=== PATIENT | male | born 1985 | race Caucasian/White ===

== ENCOUNTER 2022-08-16 23:15 | Emergency (ER) | payer SELFPAY ==
--- OUTSIDE RECORDS SUMMARY | 2022-08-16 23:21 | XMS REPORT | Continuity of Care Document ---
:1985 Author Organization [facility] t Address [address] [place] [address] Care Team Providers Name Role Phone PCP, PATIENT DOES NOT HAVE A Primary Care Physician Unavaila THAIS Perdomo Attending Clinician Unavailable Thais Perrin MD Attending Clinician [phone] Ana Luisa Lenz DO Attending Clinician ANA LUISA LENZ Attending Clinician Unavailable Carlos Lawson MA Attending Clinician Unavailable Zainab MCCRAY, Ck Dick Attending Clinician Unavailable Brittany Contreras MA Attending Clinician Unavailable Matias Tay RN, Jessica Montelongo Attending Clinician Unavailable Alli Davenport MD Attending Clinician Kylie Kolb Attending Clinician KYLIE BURR Attending Clinician Unavailable THAIS PERRIN Admitting Clinician Unavailable Alli Davenport MD Admitting Clinician ORTHOPEDIC SURGERY, ORTHOPEDIC Admitting Clinician Unavailab le Payers Payer Name Policy Type Policy Number Effective Date Expiration Date S ource Problems Condition Condition Condition Status Onset Resolution Last Treating Co mments Source Name Details Category Date Date Treatment Clinician Date 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 8-04 it y of 00:00: [place] 00 Medical Branch Acute Acute Disease Active Univers embolism embolism 8-04 ity of and and 00:00: [place] thrombosis thrombosis 00 Me dical of left of left Branch axillary axillary vein vein Symptomati Symptomati Disease Active U nivers c HIV c HIV 804 [place] of [place] 00:[place] [facility] Thrombophl Thrombophl Disease Active U nivers ebitis arm ebitis arm 804 it y of 00:00: [address] Cutaneous Cutaneous Disease Active Uni vers abscess of abscess of 05-12 it y of left upper left upper 00:[place] limb limb [facility] [place] Obesity Obesity Disease Active Univers (BMI (BMI 8 ity of 30-39.9) 30-39.9) 00:00: [place] [facility] Branch Cutaneous Cutaneous Disease Active Uni vers abscess of abscess of 05-12 it y of left upper left upper 00:[place] [facility] Allergies, Adverse Reactions, Alerts Allergy Allergy Status Severity Reaction(s) Onset Inactive Treating Comm ents Source Name Type Date Date Clinician METRONID DRUG Active SOB Univers AZOLE INGREDI 5-02 ity of HCL 00:00: [address] Metronid Propensi Active Shortness of Univers azole ty to Breath 5-02 ity of Hcl adverse 00:00: [place] reaction 00 [facility] [place] Social History Social Habit Start Date Stop Date Quantity Comments Source History of Current smoker [facility] tobacco use [facility] Exposure to 2022-07-14 2022-07-24 Not sure [facility] SARS-CoV-2 00:00:00 05:30:00 [facility] (event) [place] Alcohol intake 2021-05-08 2021-05-08 Ex-drinker [facility] 00:00:00 00:00:00 (finding) [facility] Tobacco use and 2020-05-12 2020-05-12 Smokeless tobacco Un iversity of exposure 00:00:00 00:00:00 non-user [facility] Sex Ass[birth year] At [birth year] Universit y of 00:00:00 00:00:[address] [facility] Smoking Status Start Date Stop Date Source Ex-smoker 2020-05-12 00:00:00 2020-05-12 00:00:[address] [facility] Medications Ordered Filled Start Stop Current Ordering Indication Dosage Frequency Signature Comments Components Source Medication Medication Date Date Medication? Clinician (SIG) Name Name acyclovir 2021-10 Yes [id number] 400mg Take 2 U nivers 200 mg 0-13 capsules ity of capsule 00:00: by mouth [place] 00 every 8 Medical (eight) Branch hours. cephALEXin 2021-10 Yes [id number] 500mg Take 1 Univers (KEFLEX) 0-13 9108 capsule by ity o f 500 mg 00:00: mouth in [place] capsule 00 the Medical morning Branch and 1 capsule at noon and 1 capsule in the evening. cephALEXin 2021-10- No [id number] 500mg Take 1 Univers (KEFLEX) 0-13 - 9108 capsule by ity of 500 mg 00:00: 00:00 mouth in [place] capsule 00 :00 the Medical morning Branch and 1 capsule at noon and 1 capsule in the evening. Do all this for 10 days. acyclovir 2021-10- No [id number] 400mg Take 2 Univers 200 mg 0-13 - capsules ity of capsule 00:00: 00:00 by mouth [place] 00 :00 every 8 Medical (eight) Branch hours for 10 days. ibuprofen 2020- No 600mg 600 mg, Uni vers (IBU) 05-08 Oral, ity of tablet 600 14:45: 13:56 ONCE, 1 [place] mg 00 :00 dose, Wed Medical 05/08/21 at Branch 0945, SAIGE amoxicillin 2020- No [id number] 1{tbl} Take 1 Univers -clavulanat 05-08 0808 tablet by it y of e 875-125 00:00: 04:59 mouth [place] mg per 00 :00 every 12 Medical tablet (twelve) Branch hours for 10 days. HYDROcodone Yes 1{tbl} 1 tablet, Univers -acetaminop 05-15 Oral, ity of hen (NORCO 20:00: Q6HPRN, [place] 5) 5-325 mg 00 Starting Medi jasmin tablet 1 Thu05/15/20 Bran h tablet at 1500, Until Discontinu ed, Routine, Pain (scale 7-10) LORazepam 2019- Yes .5mg 0.5 mg, Unive rs (ATIVAN) 8- Oral, ity of tablet 0.5 17:45: Q6HPRN, [place] mg 00 Starting Medical Thu05/15/20 Branch at 1245, Until Discontinu ed, Routine, Agitation apixaban 2019- No 10mg 10 mg, Univer s (ELIQUIS) 05-15-11 Oral, BID, ity of tablet 10 16:00: 12:59 14 doses, [place] mg 00 :00 First dose Medical on Thu [place] 05/15/20 at 1100, Last dose on Thu05/21/20 at 2000, Routine KCL 2019- No 40meq 40 mEq, Univers (KLOR-CON 05-15 Oral, ONCE ity of M20) tablet 10:15: 11:37 NOW, 1 [place] 40 mEq 00 :00 dose, [facility] Medical 05/15/20 at Branch 0515, Routine sennosides- Yes 1{tbl} 1 tablet, Univers docusate 05-15 Oral, BID, ity o f sodium 01:00: First dose [place] (SENOKOT S) 00 on Thu Medica l 8.6-50 mg 05/14/20 at Branc h per tablet 1999, 1 tablet Until Discontinu ed, Routine HYDROcodone 2019- No 1{tbl} 1 tablet, Univers -acetaminop 05-15 Oral, ity of hen (NORCO) 00:51: 17:32 Q6HPRN, [place] 10-325 mg 21 :43 Starting Medica l tablet 1 Thu05/14/20 Branc h tablet at 1951, Until Thu05/15/20 at 1232, Routine, Pain (scale 7-10) apixaban 5 2019- No Take 2 Univ ers mg tablet 05-15 11-10 tablets by ity of 00:00: 05:59 mouth 2 [place] 00 :00 (two) Medical times Branch daily for 7 days, THEN 1 tablet 2 (two) times daily for 90 days. Indication s: DVT apixaban 5 2019-2019- No Take 2 Univ ers mg tablet - 11-10 tablets by ity of 00:00: 05:59 mouth 2 [place] 00 :00 (two) Medical times Branch daily for 7 days, THEN 1 tablet 2 (two) times daily for 90 days. Indication s: DVT apixaban 5 2019-2019- No Take 2 Univ ers mg tablet 05-15 11-10 tablets by ity of 00:00: 05:59 mouth 2 [place] 00 :00 (two) Medical times Branch daily for 7 days, THEN 1 tablet 2 (two) times daily for 90 days. Indication s: DVT apixaban 5 2019-0 2019- No Take 2 Univ ers mg tablet 8-04 11-10 tablets by ity of 00:00: 05:59 mouth 2 [place] 00 :00 (two) Medical times Branch daily for 7 days, THEN 1 tablet 2 (two) times daily for 90 days. Indication s: DVT apixaban 5 2019-2019- No Take 2 Univ ers mg tablet 8-04 11-10 tablets by ity of 00:00: 05:59 mouth 2 [place] 00 :00 (two) Medical times Branch daily for 7 days, THEN 1 tablet 2 (two) times daily for 90 days. Indication s: DVT apixaban 5 2019-2019- No Take 2 Univ ers mg tablet 8-04 11-10 tablets by ity of 00:00: 05:59 mouth 2 [place] 00 :00 (two) Medical times Branch daily for 7 days, THEN 1 tablet 2 (two) times daily for 90 days. Indication s: DVT apixaban 5 2019-2019- No Take 2 Univ ers mg tablet 8-04 11-10 tablets by ity of 00:00: 05:59 mouth 2 [place] 00 :00 (two) Medical times Branch daily for 7 days, THEN 1 tablet 2 (two) times daily for 90 days. Indication s: DVT apixaban 5 2019-2019- No Take 2 Univ ers mg tablet 8-04 11-10 tablets by ity of 00:00: 05:59 mouth 2 [place] 00 :00 (two) Medical times Branch daily for 7 days, THEN 1 tablet 2 (two) times daily for 90 days. Indication s: DVT apixaban 5 2019-2019- No Take 2 Univ ers mg tablet 8-04 11-10 tablets by ity of 00:00: 05:59 mouth 2 [place] 00 :00 (two) Medical times Branch daily for 7 days, THEN 1 tablet 2 (two) times daily for 90 days. Indication s: DVT apixaban 5 2019-2019- No Take 2 Univ ers mg tablet 8-04 11-10 tablets by ity of 00:00: 05:59 mouth 2 [place] 00 :00 (two) Medical times Branch daily for 7 days, THEN 1 tablet 2 (two) times daily for 90 days. Indication s: DVT apixaban 5 2019- 2020- No Take 2 Univ ers mg tablet 05-15-10 tablets by ity of 00:00: 05:59 mouth 2 [place] 00 :00 (two) Medical times Branch daily for 7 days, THEN 1 tablet 2 (two) times daily for 90 days. Indication s: DVT sulfamethox 2019-0 2019- No [id number] 1{tbl} Take 1 Univers azole-trime 05-15 [id number] tablet by ity of thoprim 00:00: 04:59 mouth 2 [place] (BACTRIM 00 :00 (two) Medical DS) 800-160 times Branch mg per daily for tablet 14 days. sulfamethox 2020-0 2019- No [id number] 1{tbl} Take 1 Univers azole-trime 05-15 [id number] tablet by ity of thoprim 00:00: 04:59 mouth 2 [place] (BACTRIM 00 :00 (two) Medical DS) 800-160 times Branch mg per daily for tablet 14 days. sulfamethox 2019-0 2019- No [id number] 1{tbl} Take 1 Univers azole-trime 05-15 [id number] tablet by ity of thoprim 00:00: 04:59 mouth 2 [place] (BACTRIM 00 :00 (two) Medical DS) 800-160 times Branch mg per daily for tablet 14 days. sulfamethox 2019-0 2019- No [id number] 1{tbl} Take 1 Univers azole-trime 05-15 [id number] tablet by ity of thoprim 00:00: 04:59 mouth 2 [place] (BACTRIM 00 :00 (two) Medical DS) 800-160 times Branch mg per daily for tablet 14 days. sulfamethox 2020-0 2019- No [id number] 1{tbl} Take 1 Univers azole-trime 05-15 [id number] tablet by ity of thoprim 00:00: 04:59 mouth 2 [place] (BACTRIM 00 :00 (two) Medical DS) 800-160 times Branch mg per daily for tablet 14 days. sulfamethox 2020-0 2019- No [id number] 1{tbl} Take 1 Univers azole-trime 05-15 [id number] tablet by ity of thoprim 00:00: 04:59 mouth 2 [place] (BACTRIM 00 :00 (two) Medical DS) 800-160 times Branch mg per daily for tablet 14 days. sulfamethox 2020- No [id number] 1{tbl} Take 1 Univers azole-trime 05-15 [id number] tablet by ity of thoprim 00:00: 04:59 mouth 2 [place] (BACTRIM 00 :00 (two) Medical DS) 800-160 times Branch mg per daily for tablet 14 days. morpHINE 2019- No 2mg 2 mg, Univers injection 2 05-14 Intravenou i ty of mg 18:45: 18:55 s, ONCE, 1 [place] 00 :00 dose, [facility] Medical 05/14/20 at Branch 1345, Routine Polyethylen 2019- Yes 17g 17 g, Unive rs e Glycol 05-14 Oral, ity of 3350 14:00: DAILY, [place] (MIRALAX) 00 First dose Medi jasmin powder 17 g on [facility] 05/14/20 at 0900, Until Discontinu ed, Routine vancomycin Yes 1500mg 1,500 mg, Univers 1500 mg in 05-14 IV ity of NS 500 mL 04:30: [place] 00 Q8H ABX, Medical Piggyback First dose Bran ch RTU 1,500 (after mg last modificati on) on [place] 05/13/20 at 2330, Until Discontinu ed
Reas on for Anti-Infec tive: Empiric Therapy for Suspected Infection< br>Empiric Therapy Site: Blood
D uration of therapy: 72 hours HYDROcodone 2020- No 1{tbl} 1 tablet, Univers -acetaminop 05-12 Oral, ity of hen (NORCO 19:25: 00:51 Q6HPRN, [place] 5) 5-325 mg 03 :39 Starting Medi jasmin tablet 1 05/12/20 Branc h tablet at 1425, Until 05/14/20 at 1951, SAIGE, Pain (scale 7-10) heparin 2019- 2020- No 3000U 3,000 Univers 1,000 05-12 Units, ity of unit/mL 18:00: 15:58 Slow IV [place] injection 00 :39 Push, FOR Medic al 3,000 Units REBOLUSING Br anch , Starting 05/12/20 at 1300, Until Thu05/15/20 at 1058, Routine, for rebolusing heparin STD 2019-2019- No 1300U/h 1,300 U nivers 25,000 05-12 08-04 Units/hr ity of units/250ml 18:00: 15:58 ( [place] in NS 00 :39 mL/hr), IV Medical Infusion, Branch TITRATE, Parameters in Admin. Instr., Starting 05/12/20 at 1300
CA UTION - If LMWH given in ER, AVOID bolus and start dose/drip 12 hours after ER dosage.&nb sp; M ust program rate using programmab le infusion pump.&nbsp ; Amie ck with the ordering provider first prior to any administra tion should the patient be on existing/a dditional anticoagul ant therapy.&n bsp; DO NOT ADJUST INITIAL BOLUS OR INITIAL INFUSION RATE Rang e, Dosing and Testing: ____ &nbs p; FO [facility] - aPTT < 35: & nbsp;Bolus 5000 units, increase rate 300 units/hr&n bsp; - aPTT 35-44:&nbs p; Regulo mohan 3000 units, increase rate 200 units/hr&n bsp; - aPTT 45-54:&nbs p;&nbs p;Increase rate 100 units/hr&n bsp; - aPTT 55-85:&nbs p; NO CHANGE&nbs p; - aPTT 86-95:&nbs p; De crease rate 100 units/hr&n bsp; - aPTT 96-120:&nb sp; H old 30 minutes, decrease rate 150 units/hr&n bsp; - aPTT > 120: Hold 60 minutes, decrease rate 200 units/hr&n bsp; Check aPTT 6 hours after initiation , then Q6H after every change, aPTT Q12H once therapeuti c levels are reached.&n bsp; &amp ;nbsp;____ &nbs p; FO R [facility] ONLY - aPTT < 40: & nbsp;Bolus 5000 units, increase rate 300 units/hr&n bsp; - aPTT 40-49:&nbs p; Regulo mohan 3000 units, increase rate 200 units/hr&n bsp; - aPTT 50-59:&nbs p; In crease rate 100 units/hr&n bsp; - aPTT 60-85:&nbs p; NO CHANGE&nbs p; - aPTT 86-95:&nbs p; De crease rate 100 units/hr&n bsp; - aPTT 96-120:&nb sp; H old 30 minutes, decrease rate 150 units/hr&n bsp; - aPTT > 120: Hold 60 minutes, decrease rate 200 units/hr&n bsp;&n bsp;Check aPTT 6 hours after initiation , then Q6H after every change, aPTT Q12H once therapeuti c levels are reached.<b r> heparin 2019-0 2020- No 5000U 5,000 Univers 1000 05-12 Units, IV ity of unit/mL 18:00: 16:40 Push, [place] injection 00 :00 ONCE, 1 Medical Soln 5,000 dose, Sat Bran ch Units 05/12/20 at 1300, Routine thiamine 2020-0 Yes 100mg 100 mg, Unive rs (VITAMIN 05-12 Oral, ity of B1) tablet 14:00: DAILY, [place] 100 mg 00 First dose Medical on Sat Branch 05/12/20 at 0900, Until Discontinu ed, Routine foLIC acid Yes 1mg 1 mg, Univer s (FOLATE) 05-12 Oral, ity of tablet 1 mg 14:00: DAILY, [place] 00 First dose Medical on [facility] Branch 05/12/20 at 0900, Until Discontinu ed, Routine cefTRIAXone Yes 2000mg 2,000 mg, Univers (ROCEPHIN) 05-12 IV ity of 2,000 mg in 11:45: Piggyback, [place] NaCl 0.9% 00 Q24H ABX, Medic al (NS) 100 mL First dose Br anch MINI-BAG on 05/12/20 at 0645, Until Discontinu ed, 100 mL
R gloria for Anti-Infec tive: Documented Infection< br>Documen [place] Infection Site: Blood<br&g t;Duration of Therapy: 7 days vancomycin 2019- No 15mg/kg 1,250 mg Univers 1250 mg in 05-12 (rounded ity of NS 250 mL 10:45: 03:16 from [place] RTU IV 00 :32 1,327.5 mg Medical Piggyback = 15 mg/kg Bran ch 1,250 mg ?88.5 kg), IV Piggyback, Q12H ABX, First dose on 05/12/20 at 0545, Until Discontinu ed
Reas on for Anti-Infec tive: Empiric Therapy for Suspected Infection< br>Empiric Therapy Site: Blood
D uration of therapy: 72 hours ibuprofen Yes 400mg 400 mg, Univ ers (IBU) 05-12 Oral, ity of tablet 400 10:34: Q6HPRN, [place] mg 20 Starting Medical [facility] 05/12/20 Branch at 0534, Until Discontinu ed, Routine, Pain (scale 1-3) pantoprazol 2020- No 40mg Take 40 mg Univers e 05-12 by mouth ity of (PROTONIX) 08:37: 00:00 daily. [place] 40 mg EC 36 :00 Medical tablet Branch LORazepam No 1mg 1 mg, Univer s (ATIVAN) 05-12 Oral, ity of tablet 1 mg 08:25: 17:32 Q4HPRN, [place] 30 :43 Starting Medical 05/12/20 Branch at 0325, Until Thu05/15/20 at 1232, Routine, Agitation iohexol 2019- No 100mL 100 mL, Unive rs (OMNIPAQUE 05-12 Intravenou it y of 350 08:23: 08:23 s, ONCE, 1 [place] 00 :00 dose, Sat Medica l mL) 05/12/20 at [place] injection 0345, 100 mL Routine morpHINE 2019- No 4mg 4 mg, Slow Un sharron injection 4 05-12 IV Push, ity of mg 07:00: 06:32 ONCE, 1 [place] 00 :00 dose, Sat Medical 05/12/20 at Branch 0200, STAT enoxaparin 2019- No 100mg 100 mg, Un sharron (LOVENOX) 05-12 Subcutaneo ity of injection 07:00: 06:30 , ONCE, [place] 100 mg 00 :00 1 dose, Medical 05/12/20 Branch at 0200, SAIGE HYDROcodone 2019- No 1{tbl} 1 tablet, Univers -acetaminop 05-12 Oral, ity of hen (NORCO 03:30: 04:01 ONCE, 1 [place] 5) 5-325 mg 00 :00 dose, Fri Med ical tablet 1 05/11/20 at [facility] h tablet 2230, SAIGE No known No Univers medications ity [facility] No known No [facility] Ordered Filled Immunization Date Status Comments [facility] Immunization Name Name Td 2021-05-08 Completed University 00:00:[address] [facility] Td 2021-05-08 Completed [facility] :00:[address] [facility] Vital Signs Vital Name Observation Time Observation Value Comments Source Systolic blood 2022-07-24 10:31:00 121 mm[Hg] Univer sity of pressure [facility] Diastolic blood 2022-07-24 10:31:00 74 mm[Hg] Unive rsity of pressure [place] [facility] Heart rate 2022-07-24 10:31:00 97 /min [facility] [place] [facility] Body temperature 2022-07-24 10:31:00 36.83 Devika Univ ersity of [place] [facility] Respiratory rate 2022-07-24 10:31:00 17 /min Univ ersity of [place] [facility] Body height 2022-07-24 10:31:00 170.2 cm [facility]i ty [facility] [place] [facility] Body weight 2022-07-24 10:31:00 72.576 kg [facility] [place] [facility] BMI 2022-07-24 10:31:00 25.06 kg/m2 Universi ty of [place] [facility] Oxygen saturation in 2022-07-24 10:31:00 97 /min University of Arterial blood by [facility] Pulse oximetry Branch Systolic blood 2021-05-08 13:37:00 133 mm[Hg] Univer sity of pressure [place] [facility] Diastolic blood 2021-05-08 13:37:00 87 mm[Hg] Unive rsity of pressure [place] [facility] Heart rate 2021-05-08 13:37:00 105 /min [facility]i ty [facility] [place] [facility] Body temperature 2021-05-08 13:37:00 36.5 Devika Univ ersity of [place] [facility] Respiratory rate 2021-05-08 13:37:00 18 /min Univ ersity of [place] [facility] Body weight 2021-05-08 13:37:00 88.451 kg [facility] [place] [facility] BMI 2021-05-08 13:37:00 30.54 kg/m2 Universi ty of [place] [facility] Oxygen saturation in 2021-05-08 13:37:00 97 /min University of Arterial blood by [facility] Pulse oximetry Branch Systolic blood 2020-05-15 16:43:00 95 mm[Hg] Univer sity of pressure [place] [facility] Diastolic blood 2020-05-15 16:43:00 47 mm[Hg] Unive rsity of pressure [place] [facility] Heart rate 2020-05-15 16:43:00 45 /min [facility] [place] [facility] Body temperature 2020-05-15 16:43:00 35.61 Devika Univ ers[facility] [place] [facility] Respiratory rate 2020-05-15 16:43:00 18 /min Univ ersity of [place] [facility] Oxygen saturation in 2020-05-15 16:43:00 95 /min [facility] Arterial blood by [facility] Pulse oximetry Branch BMI 2020-05-12 10:00:00 30.54 kg/m2 [facility] Body height 2020-05-12 10:00:[address] [facility] Body weight 2020-05-12 10:00:[address] [facility] Procedures Procedure Date / Time Performing Clinician Source Performed XR FOOT 3+ VW LEFT 2022-07-24 11:38:25 Thais Perrin [facility] NOTICE OF PRIVACY 2022-07-24 10:19:43 Doctor Unassigned, No [facility] PRACTICES Name [facility] CONSENT/REFUSAL FOR 2022-07-24 10:18:54 Doctor Unassigned, No [facility] DIAGNOSIS AND TREATMENT Name Medical Branch ACTIVATED PARTIAL 2020-05-15 06:40:00 Holden Castlilo [facility] COMP. METABOLIC PANEL 2020-05-15 05:29:00 Radha [facility] ([id number]) Medical Branch VANCOMYCIN TROUGH 2020-05-15 05:29:00 Radha [facility] CBC WITH DIFF 2020-05-15 05:29:00 Diaz [facility] TOXOPLASMA IGG ANTIBODY 2020-05-15 05:29:00 Radha [facility] HBC ANTIBODY (IGM & IGG) 2020-05-15 05:29:00 Zoey Garcia [facility] HAV ANTIBODY (IGG AND 2020-05-15 05:29:00 Radha [facility] IGM) [facility] GALV ONLY - SYPHILIS 2020-05-15 05:29:00 Radha [facility] IGG/IGM [facility] URINALYSIS 2020-05-15 01:34:00 Radha [facility] GC & CHLAMYDIA AMPLIFIED 2020-05-15 01:34:00 Zoey Garcia [facility] ASSAY [facility] ACTIVATED PARTIAL 2020-05-14 21:55:00 Holden Castillo [facility] CD4 SUBSET ASSAY 2020-05-14 15:15:[address] [facility] ACTIVATED PARTIAL 2020-05-14 15:15:00 Jonathan [facility] BASIC METABOLIC PANEL 2020-05-14 09:56:00 Diaz, [facility] (NA, K, CL, CO2, Medical Branch GLUCOSE, BUN, CREATININE, CA) LIPID PANEL 2020-05-14 09:56:[address] [facility] ([id number])(TOTAL Medical Branch CHOLESTEROL, TRIGLYCERIDES, HDL) CBC WITH DIFF 2020-05-14 09:56[facility] 2020-05-14 09:56:00 Radha [facility] (A1C) [facility] HEPATITIS B SURFACE 2020-05-14 09:56:00 Radha [facility] ANTIGEN [facility] HCV ANTIBODY 2020-05-14 09:56:00 Radha [facility] HEPATITIS B CORE 2020-05-14 09:56[facility] VANCOMYCIN TROUGH 2020-05-14 01:18:[address] [facility] ACTIVATED PARTIAL 2020-05-14 01:18:00 Jonathan [facility] ASPIRATE OR ABSCESS 2020-05-13 21:33:00 Lisa Mckeon [facility] CULTURE(AEROBIC/ANAEROBI [facility] C) AFB CULTURE 2020-05-13 21:33:[address] [facility] FUNGUS (ROUTINE) CULTURE 2020-05-13 21:33:[address] [facility] INCISION AND DRAINAGE 2020-05-13 20:47:00 Lisa Mckeon [facility] UPPER EXTREMITY [facility] ACTIVATED PARTIAL 2020-05-13 14:08:00 Jonathan [facility] BASIC METABOLIC PANEL 2020-05-13 06:38:00 Diaz, [facility] (NA, K, CL, CO2, Medical Branch GLUCOSE, BUN, CREATININE, CA) CBC WITH DIFF 2020-05-13 06:38:00 Diaz, [facility] o f [facility] ACTIVATED PARTIAL 2020-05-13 06:38:00 Holden Castillo [facility] ACTIVATED PARTIAL 2020-05-12 23:21:00 Holden Castillo [facility] ACTIVATED PARTIAL 2020-05-12 11:35:00 [facility] - [facility]INE 2020-05-12 11:05:00 Holden Castillo [facility] DRUG (IMMUNOASSAY) - Medical [facility] COMPREHENSIVE DRUG SCREEN BLOOD CULTURE SCREEN 2020-05-12 11:04:00 Holden Castillo [facility] HIV 1/2 AG-AB WITH 2020-05-12 11:03:00 Holden Castillo [facility] REFLEX [facility] HIV 1/2 AB SUPPLEMENTAL 2020-05-12 11:03:00 Holden Castillo [facility] BLOOD CULTURE SCREEN 2020-05-12 10:52:00 Holden Castillo [facility] EKG-12 LEAD 2020-05-12 10:33:31 Alli Davenport [facility] CT HUMERUS LEFT W 2020-05-12 08:37:26 Kylie Burr [facility] PROTHROMBIN TIME / INR 2020-05-12 06:44:00 Kylie Burr U [facility] ACTIVATED PARTIAL 2020-05-12 06:44:00 Kylie Burr [facility] C-REACTIVE PROTEIN 2020-05-12 04:03:00 [facility] COMP. METABOLIC PANEL 2020-05-12 04:03:00 Kylie Burr [facility] ([id number]) [facility] SEDIMENTATION RATE 2020-05-12 04:03:00 [facility] CBC WITH DIFF 2020-05-12 04:03:[address] [facility] HEPATITIS B SURFACE 2020-05-12 04:03:00 [facility] HCV ANTIBODY 2020-05-12 04:03:[address] [facility] HBC ANTIBODY (IGM & IGG) 2020-05-12 04:03:00 Holden Castillo Jennifer [facility] COVID-19 (ID NOW RAPID 2020-05-12 04:03:00 Kylie Burr [facility] TESTING) Medical Branch US UPPER EXTREMITY VEIN 2020-05-12 03:49:17 Kylie Burr [facility] WITH COMPRESSION LEFT Medical Br anch (ONLY FOR RULE OUT DVT) XR ELBOW <3 VW LEFT 2020-05-12 02:36:17 Kylie Burr [facility] Encounters Start End Encounter Admission Attending Care Care Encounter Source Date/Time Date/Time Type Type Clinicians Facility Department ID 2022-07-24 2022-07-24 [id number] Univers 05:35:00 07:00:00 , THAIS borja [facility] 2022-07-24 2022-07-24 [facility] [id number] Univers 05:35:00 07:00:00 , Thais LOPEZ 350.1.13.10 i ty of Ashley HENSLEY 4.2.7.2.686 [facility] [id number] [address] 2021-05-08 2021-05-08 Emergency [place], UTMARY GRACE 1.2.840.114 [id number] Univers 08:30:00 09:30:00 Ana Luisa Lopez 350.1.13.10 ity [place] 4.2.7.2.686 [facility] [id number] [address] 2021-05-08 2021-05-08 Emergency [facility] [id number] Univers 08:30:00 08:30:00 ANA LUISA jeremiah [facility] 2020-11-01 2020-11-01 Telephone ZHANG Lawson [id number] Univers 00:00:00 00:00:00 Nechelle Y HEALTH 350.1.13.10 [place] [id number] [address] 2020-10-31 2020-10-31 Case Zainab, [facility] [id number] Univers 00:00:00 00:00:00 Management Ck L Y HEALTH 350.1.13.10 [place] [id number] [address] 2020-07-31 2020-07-31 Jigar Contreras, [facility] [id number] Univers 00:00:00 00:00:00 Management Brittany L Y HEALTH 350.1.13.10 [place] [id number] [address] 2020-07-18 2020-07-18 Jigar Feliciano, [facility] 1.2.840.114 [id number] Univers 00:00:00 00:00:00 Management Jessica R Y HEALTH 350.1.13.10 [place] [id number] [address] 2020-07-10 2020-07-10 [facility] [id number] Univers 00:00:00 00:00:00 Management Brittany L Y HEALTH 350.1.13.10 [place] [id number] [address] 2020-07-09 2020-07-09 [facility] [id number] [id number] Univers 00:00:00 00:00:00 Management Brittany L Y HEALTH 350.1.13.10 [place] [id number] [address] 2020-05-18 2020-05-18 [facility] 1.2.300.855 [id number] Univers 00:00:00 00:00:00 Management Brittany L Y HEALTH 350.1.13.10 ity [place] [id number] [place] [address] Branch 2020-05-17 2020-05-17 Jigar Contreras, [facility]ERS[facility] [id number] Univers 00:00:00 00:00:00 Management Brittany L Y HEALTH 350.1.13.10 [place] [id number] [address] 2020-05-16 2020-05-16 Telephone Ethel [facility] 1.2.840.114 [id number] Univers 00:00:00 00:00:00 Alli Terrazas MULTISPEC 350.1.13.10 [facility] [place] [id number] [address] DIABETES CLINIC 2020-05-16 2020-05-16 Jigar Contreras, [facility]ERSIT [id number] Univers 00:00:00 00:00:00 Management Brittany L Y HEALTH 350.1.13.10 [place] [id number] [address] 2020-05-11 2020-05-15 Hospital Kylie Burr 1.2.8 40.114 [id number] Univers 20:02:30 16:26:00 Encounter Alli Davenport [place] 350.1.1 3.10 ity of Hospital 4.2.7.2.686 [place] [id number] [address] 2020-05-15 2020-05-15 Telephone Ashley [facility] 1.2.840.114 [id number] Univers 00:00:00 00:00:00 Ck L Y HEALTH 350.1.13.10 [place] [id number] [address] 2020-05-11 2020-05-11 Emergency X AMINAH [facility] ERT [id number] Univers 20:02:30 20:02:[address] [facility] Results Test Description Test Time Test Comments Results Result Comments Source GC & CHLAMYDIA AMPLIFIED ASSAY 2020-05-15 18:26:00 Test Item Value Reference Range Interpretation Comme nts C. trachomatis Nucleic Acid (test code = 33401-2) Negative Nega tive N. gonorrhoeae Nucleic Acid (test code = 11347-4) Negative Nega tive Lab Interpretation (test code = 12496-3) Normal [facility] SUBSET [id number] 17:05:00 Test Item Value Reference Range Interpretation Comments CD4 % (test code = 23 % 31-60 L 8123-2) CD4 Absolute (test code See_Comment L [Au tomated message] = 70538-2) The system Cabeo generated this result transmitted ref erence range: 410-1,59 0 Cells/?L. The reference range was not used to int erpret this result as normal/abnormal . Lab Interpretation (test Abnormal code = 27746-7) [facility] ONLY - SYPHILIS [id number] 14:50:00 Test Item Value Reference Range Interpretation Comments Syphilis IgG/IgM (test Non-reactive Non-reactive code = 14688-5) MORIS (test code = MORIS) Non-reactive - No serologic evidence of T. pallidum infection. Cannot exclude incubating or early syphilis. Submit a second specimen in 2-4 weeks if syphilis is clinically suspected. Equivocal - Further testing to follow. Reactive - Further testing to follow. Lab Interpretation (test Normal code = 95639-9) [facility] CenterTOXOPLASMA IGG [id number] 14:49:00 Test Item Value Reference Range Interpretation Comments TOXO IGG (test code Negative = 9537822169) MORIS (test code = Positive - Indicates MORIS) current or past T. gondii infection.Negative - No serologic evidence of T. gondii infection. Cannot exclude acute T. gondii infection. Equivocal - A second sample should be sent. [facility] ANTIBODY (IGG AND IGM)2020-05-15 10:04:00 Test Item Value Reference Range Interpretation Comments HAV Total (test code Negative = 1457224271) HAVT Semi-Quantitative (test code = 6298827368) MORIS (test code = It is recommended that a MORIS) new specimen be collected within 2-4 weeks and retested. ?If any questions, please contact the Clinical Chemistry Director director clinical applications at [phone]. ? [facility] WITH [id number] 08:37:00 Test Item Value Reference Range Interpretation Comments WBC (test code = See_Comment [Automated 6690-2) message] The sy stem which generated this result transmitted reference range : 4.20 - 10.70 10*3/?L. The reference range was not used to interpret this result as normal/abnormal . RBC (test code = See_Comment L [Automated 789-8) message] The sy stem which generated this result transmitted reference range : 4.26 - 5.52 10*6/?L. The reference range was not used to interpret this result as normal/abnormal . HGB (test code = 12.3 g/dL 12.2-16.4 718-7) HCT (test code = 36.9 % 38.4-49.3 L 4544-3) MCV (test code = 90.7 fL 81.7-95.6 787-2) MCH (test code = 30.2 pg 26.1-32.7 785-6) MCHC (test code = 33.3 g/dL 31.2-35 786-4) RDW-SD (test code = 42.5 fL 38.5-51.6 16240-9) RDW-CV (test code = 12.9 % 12.1-15.4 788-0) PLT (test code = See_Comment [Automated 777-3) message] The sy stem which generated this result transmitted reference range : 150 - 328 10*3/ ?L. The reference r kiran was not used to interpret this result as normal/abnormal . MPV (test code = 10.9 fL 9.8-13 98427-0) NRBC/100 WBC (test See_Comment [Automat ed code = 0075592767) message] The system which generated this result transmitted reference range : 0.0 - 10.0 /100 WBCs. The refer ence range was not u sed to interpret th is result as normal/abnormal . NRBC x10^3 (test code <0.01 See_Comment [Auto mated = 8045958107) message] The s ystem which generated this result transmitted reference range : 10*3/?L. The reference range was not used to interpret this result as normal/abnormal . GRAN MAT (NEUT) % 57.9 % (test code = 770-8) IMM GRAN % (test code 1.50 % = 7164191489) LYMPH % (test code = 33.1 % 736-9) MONO % (test code = 6.4 % 5905-5) EOS % (test code = 0.6 % 713-8) BASO % (test code = 0.5 % 706-2) GRAN MAT x10^3(ANC) 5.57 10*3/uL 1.99-6.95 (test code = 6249049596) IMM GRAN x10^3 (test 0.14 10*3/uL 0-0.06 H code = 4475726107) LYMPH x10^3 (test code 3.19 10*3/uL 1.09-3.23 = 731-0) MONO x10^3 (test code 0.62 10*3/uL 0.36-1.02 = 742-7) EOS x10^3 (test code = 0.06 10*3/uL 0.06-0.53 711-2) BASO x10^3 (test code 0.05 10*3/uL 0.01-0.09 = 704-7) Lab Interpretation Abnormal (test code = 40577-7) [facility] CenterVanblue mountain hospitalycin Trough Level - Draw immediately prior to the 4TH dose, but, no more than 60 minutes before the 4TH dose. 2020-05-15 07:21:00 Test Item Value Reference Range Interpretation Comments VANCO TROUGH (test code 13.7 ug/mL 10-20 = 8005965289) MORIS (test code = MORIS) Toxic Range: ?>20 ug/mL 15-20 ug/mL is recommended for severe infection or when Vancomycin MARIANN is greater than or equal to 2. Lab Interpretation (test Normal code = 05373-6) [facility] CenterHB ANTIBODY (IGM & IGG)2020-05-15 07:14:00 Test Item Value Reference Range Interpretation Comments HBC (test code = 3272493847) Negative HBC Semi-Quantitative (test code = 3839156353) [facility] (17009)2020-05-15 07:01:00 Test Item Value Reference Range Interpretation Comments NA (test code = 139 mmol/L 135-145 1256425592) K (test code = 3.3 mmol/L 3.5-5 L 4331659119) CL (test code = 105 mmol/L 98-108 6061417731) CO2 TOTAL (test code = 27 mmol/L 23-31 0456851025) AGAP (test code = 2-16 9535853862) BUN (test code = 10 mg/dL 7-23 6407950061) GLUCOSE (test code = 92 mg/dL 70-110 8429683344) CREATININE (test code = 0.83 mg/dL 0.6-1.25 9268882415) TOTAL BILI (test code = <0.1 0.1-1.1 L 8121521141) CALCIUM (test code = 9.2 mg/dL 8.6-10.6 4227562155) T PROTEIN (test code = 6.6 g/dL 6.3-8.2 7857157217) ALBUMIN (test code = 3.7 g/dL 3.5-5 4512210631) ALK PHOS (test code = 70 U/L 34-122 6169985417) ALTv (test code = 101 U/L 5-50 H 1742-6) AST(SGOT) (test code = 126 U/L 13-40 H 7067126590) eGFR Calculation mL/min/1.73m2 (Non-) (test code = 1699391464) eGFR Calculation mL/min/1.73m2 () (test code = 7892404193) MORIS (test code = MORIS) Association of Glomerular Filtration Rate (GFR) and Staging of Kidney Disease* + --+ --+ ------+| GFR (mL/min/1.73 m2) ?| With Kidney Damage ?| ?Without Kidney Damage+ --------+ --------+ +| ?>90 ?| ?Stage one ?| ? Normal ?+ ---+ ---+ -------+| ?60-89 ?| ?Stage two ?| ? Decreased GFR ? + --+ --+ ------+| ?30-59 ?| ?Stage three ?| ? Stage three ? + --+ --+ ------+| ?15-29 ?| ?Stage four ? | ? Stage four ?+ ---+ ---+ -------+| ?<15 (or dialysis) ? ?| ?Stage five ? | ? Stage five ?+ ---+ ---+ -------+ *Each stage assumes the associated GFR level has been in effect for at least three months. ?Stages 1 to 5, with or without kidney disease, indicate chronic kidney disease. Notes: Determination of stages one and two (with eGFR >59mL/min/1.73 m2) requires estimation of kidney damage for at least three months as defined by structural or functional abnormalities of the kidney, manifested by either:Pathological abnormalities or Markers of kidney damage (including abnormalities in the composition of the blood or urine or abnormalities in imaging tests). Lab Interpretation Abnormal (test code = 75454-1) [facility] (for use with Heparin Practice Guideline). Note: Draw and Send all Lab STAT.2020-05-15 06:58:00 Test Item Value Reference Range Interpretation Comments APTT Patient (test code See_Comment H [Au tomated message] = 3173-2) The system Cabeo generated this result transmitted ref erence range: 26 - 36 Seconds. The reference range was not used to int erpret this result as normal/abnormal . Lab Interpretation (test Abnormal code = 32288-0) [facility] CenterURINALYSIS2020-08-04 03:29:00 Test Item Value Reference Range Interpretation Comments APPEARANCE (test code = Clear Clear 2407901736) COLOR (test code = Straw Yellow A 0383761689) PH (test code = 4.8-8.0 6179009618) SP GRAVITY (test code = 1.003-1.030 2809247550) GLU U QUAL (test code = Normal Normal 2829306510) BLOOD (test code = Negative Negative 1640660820) KETONES (test code = Negative Negative 8378813153) PROTEIN (test code = Negative Negative 2887-8) UROBILIN (test code = Normal Normal 3944083079) BILIRUBIN (test code = Negative Negative 2083760527) NITRITE (test code = Negative Negative 6302719675) LEUK TREY (test code = Negative Negative 6505087240) RBC/HPF (test code = See_Comment [Autom ated message] 7745096577) The system Cabeo generated this result transmitted ref erence range: 0 - 3 HP F. The reference range was not used to int erpret this result as normal/abnormal . WBC/HPF (test code = <1 See_Comment [Autom ated message] 2368590121) The system Cabeo generated this result transmitted ref erence range: 0 - 5 HP F. The reference range was not used to int erpret this result as normal/abnormal . BACTERIA (test code = Negative Negative 7685456378) MUCOUS (test code = Slight Negative LPF A 7736750563) Lab Interpretation (test Abnormal code = 21664-7) [facility] CenterHCV [id number] 02:21:00 Test Item Value Reference Range Interpretation Comments HCV Ab (test code = 75741-3) Negative HCV Semi-Quantitative (test code = 01526-8) [facility] B CORE ANTIBODY [id number] 01:54:00 Test Item Value Reference Range Interpretation Comments HBCM Negative Semi-Quantitative (test code = 56174-5) MORIS (test code = Biotin has been reported MORIS) to cause a negative bias, interpret results relative to patient's use of biotin. [facility] SURFACE [id number] 01:46:00 Test Item Value Reference Range Interpretation Comments HBsAg Semi-Quantitative (test code = Negative Negative 5195-3) [facility] CenterGLYCOSYLATED HEMOGLOBIN (A1C)2020-05-15 01:41:00 Test Item Value Reference Range Interpretation Comments HGB A1C (test code = 4548-4) 5.5 % 4-6 Lab Interpretation (test code = Normal 41680-6) [facility] CenterLIPID PANEL (17256)(TOTAL CHOLESTEROL, TRIGLYCERIDES, HDL)2020-05-15 01:09:00 Test Item Value Reference Range Interpretation Comments CHOL (test code = 192 mg/dL 120-200 7419888065) HDL (test code = 44 mg/dL >40 7530604858) HDLC RATIO (test code = See_Comment [Au tomated message] 6265306189) The system Cabeo generated this result transmit [place] reference range : <=5.0. The refe rence range was not u sed to interpret th is result as normal/abnormal . TRIG (test code = 246 mg/dL 30-170 H 6322909403) LDL CHOL (test code = 99 mg/dL See_Comment [Auto mated message] 77843-5) The system Cabeo generated this result transmit [place] reference range : <=160. The refe rence range was not u sed to interpret th is result as normal/abnormal . VLDL (test code = 49 mg/dL 5-60 6485895308) Lab Interpretation (test Abnormal code = 24332-6) [facility] (for use with Heparin Practice Guideline). Note: Draw and Send all Lab STAT.2020-05-14 22:39:00 Test Item Value Reference Range Interpretation Comments APTT Patient (test code >150 See_Comment HH [Au tomated message] = 3173-2) The system Cabeo generated this result transmitted ref erence range: 26 - 36 Seconds. The reference range was not used to int erpret this result as normal/abnormal . Lab Interpretation (test Abnormal code = 31316-8) [facility] (for use with Heparin Practice Guideline). Note: Draw and Send all Lab STAT.2020-05-14 15:52:00 Test Item Value Reference Range Interpretation Comments APTT Patient (test code = See_Comment [ Automated message] 3173-2) The system Cabeo generated this result transmitted ref erence range: 26 - 36 Seconds. The re ference range was not u sed to interpret this result as normal/abnor mal. Lab Interpretation (test Normal code = 16599-7) [facility] METABOLIC PANEL (NA, K, CL, CO2, GLUCOSE, BUN, CREATININE, CA)2020-05-14 10:33:00 Test Item Value Reference Range Interpretation Comments NA (test code = 136 mmol/L 135-145 7922136767) K (test code = 4.1 mmol/L 3.5-5 4366571345) CL (test code = 106 mmol/L 98-108 6130850987) CO2 TOTAL (test code = 25 mmol/L 23-31 2924990220) AGAP (test code = 2-16 3354165016) BUN (test code = 13 mg/dL 7-23 2890160385) GLUCOSE (test code = 156 mg/dL 70-110 H 1383577074) CREATININE (test code = 0.67 mg/dL 0.6-1.25 2661807909) CALCIUM (test code = 9.4 mg/dL 8.6-10.6 1071483790) eGFR Calculation mL/min/1.73m2 (Non-) (test code = 7875815252) eGFR Calculation mL/min/1.73m2 () (test code = 6125390334) MORIS (test code = MORIS) Association of Glomerular Filtration Rate (GFR) and Staging of Kidney Disease* + --+ --+ ------+| GFR (mL/min/1.73 m2) ?| With Kidney Damage ?| ?Without Kidney Damage+ --------+ --------+ +| ?>90 ?| ?Stage one ?| ? Normal ?+ ---+ ---+ -------+| ?60-89 ?| ?Stage two ?| ? Decreased GFR ? + --+ --+ ------+| ?30-59 ?| ?Stage three ?| ? Stage three ? + --+ --+ ------+| ?15-29 ?| ?Stage four ? | ? Stage four ?+ ---+ ---+ -------+| ?<15 (or dialysis) ? ?| ?Stage five ? | ? Stage five ?+ ---+ ---+ -------+ *Each stage assumes the associated GFR level has been in effect for at least three months. ?Stages 1 to 5, with or without kidney disease, indicate chronic kidney disease. Notes: Determination of stages one and two (with eGFR >59mL/min/1.73 m2) requires estimation of kidney damage for at least three months as defined by structural or functional abnormalities of the kidney, manifested by either:Pathological abnormalities or Markers of kidney damage (including abnormalities in the composition of the blood or urine or abnormalities in imaging tests). Lab Interpretation Abnormal (test code = 52681-4) [facility] WITH [id number] 10:11:00 Test Item Value Reference Range Interpretation Comments WBC (test code = See_Comment [Automated 2490-2) message] The sy stem which generated this result transmitted reference range : 4.20 - 10.70 10*3/?L. The reference range was not used to interpret this result as normal/abnormal . RBC (test code = See_Comment L [Automated 359-8) message] The sy stem which generated this result transmitted reference range : 4.26 - 5.52 10*6/?L. The reference range was not used to interpret this result as normal/abnormal . HGB (test code = 12.2 g/dL 12.2-16.4 718-7) HCT (test code = 36.0 % 38.4-49.3 L 4544-3) MCV (test code = 90.0 fL 81.7-95.6 787-2) MCH (test code = 30.5 pg 26.1-32.7 785-6) MCHC (test code = 33.9 g/dL 31.2-35 786-4) RDW-SD (test code = 41.1 fL 38.5-51.6 63504-5) RDW-CV (test code = 12.5 % 12.1-15.4 788-0) PLT (test code = See_Comment [Automated 777-3) message] The sy stem which generated this result transmitted reference range : 150 - 328 10*3/ ?L. The reference r kiran was not used to interpret this result as normal/abnormal . MPV (test code = 11.4 fL 9.8-13 81422-6) NRBC/100 WBC (test See_Comment [Automat ed code = 6182069401) message] The system which generated this result transmitted reference range : 0.0 - 10.0 /100 WBCs. The refer ence range was not u sed to interpret th is result as normal/abnormal . NRBC x10^3 (test code <0.01 See_Comment [Auto mated = 3786291962) message] The s ystem which generated this result transmitted reference range : 10*3/?L. The reference range was not used to interpret this result as normal/abnormal . GRAN MAT (NEUT) % 79.9 % (test code = 770-8) IMM GRAN % (test code 1.00 % = 1789826760) LYMPH % (test code = 15.4 % 736-9) MONO % (test code = 3.6 % 5905-5) EOS % (test code = 0.0 % 713-8) BASO % (test code = 0.1 % 706-2) GRAN MAT x10^3(ANC) 7.40 10*3/uL 1.99-6.95 H (test code = 6398211913) IMM GRAN x10^3 (test 0.09 10*3/uL 0-0.06 H code = 5795117510) LYMPH x10^3 (test code 1.43 10*3/uL 1.09-3.23 = 731-0) MONO x10^3 (test code 0.33 10*3/uL 0.36-1.02 L = 742-7) EOS x10^3 (test code = <0.03 0.06-0.53 L 711-2) BASO x10^3 (test code <0.03 0.01-0.09 = 704-7) Lab Interpretation Abnormal (test code = 33772-8) [facility] Center[facility] Trough Level - Draw within 30 minutes prior to 4TH dose.2020-05-14 02:52:00 Test Item Value Reference Range Interpretation Comments VANCO TROUGH (test code 5.9 ug/mL 10-20 L = 3903050436) MORIS (test code = MORIS) Toxic Range: ?>20 ug/mL 15-20 ug/mL is recommended for severe infection or when Vancomycin MARIANN is greater than or equal to 2. Lab Interpretation (test Abnormal code = 77186-6) [facility] (for use with Heparin Practice Guideline). Note: Draw and Send all Lab STAT.2020-05-14 01:34:00 Test Item Value Reference Range Interpretation Comments APTT Patient (test code See_Comment H [Au tomated message] = 3173-2) The system Cabeo generated this result transmitted ref erence range: 26 - 36 Seconds. The reference range was not used to int erpret this result as normal/abnormal . Lab Interpretation (test Abnormal code = 54959-2) [facility] 1/2 AG-AB WITH [id number] 16:32:00 Test Item Value Reference Range Interpretation Comments HIV Semi-quantitative (test code = Reactive Negative A 15360-0) Lab Interpretation (test code = Abnormal 18286-3) [facility] 1/2 AB SUPPLEMENTAL [id number] 16:32:00 Test Item Value Reference Range Interpretation Comments HIV Supplemental Positive Confirmatory Testing (test code = 3970662041) HIV-1 Ab Confirmation Positive (test code = 0789019843) HIV-2 Ab Confirmation Negative (test code = 7734669627) MORIS (test code = MORIS) Patient is confirmed to have HIV-[address] [facility] (for use with Heparin Practice Guideline). Note: Draw and Send all Lab STAT.2020-05-13 14:26:00 Test Item Value Reference Range Interpretation Comments APTT Patient (test code = See_Comment [ Automated message] 3173-2) The system whic h generated this result transmitted ref erence range: 26 - 36 Seconds. The re ference range was not u sed to interpret this result as normal/abnor mal. Lab Interpretation (test Normal code = 58887-1) [facility] WITH [id number] 08:22:00 Test Item Value Reference Range Interpretation Comments WBC (test code = See_Comment [Automated 4125-2) message] The sy stem which generated this result transmitted reference range : 4.20 - 10.70 10*3/?L. The reference range was not used to interpret this result as normal/abnormal . RBC (test code = See_Comment L [Automated 139-8) message] The sy stem which generated this result transmitted reference range : 4.26 - 5.52 10*6/?L. The reference range was not used to interpret this result as normal/abnormal . HGB (test code = 12.6 g/dL 12.2-16.4 718-7) HCT (test code = 38.2 % 38.4-49.3 L 4544-3) MCV (test code = 92.3 fL 81.7-95.6 787-2) MCH (test code = 30.4 pg 26.1-32.7 785-6) MCHC (test code = 33.0 g/dL 31.2-35 786-4) RDW-SD (test code = 44.5 fL 38.5-51.6 47712-4) RDW-CV (test code = 13.2 % 12.1-15.4 788-0) PLT (test code = See_Comment [Automated 777-3) message] The sy stem which generated this result transmitted reference range : 150 - 328 10*3/ ?L. The reference r kiran was not used to interpret this result as normal/abnormal . MPV (test code = 11.3 fL 9.8-13 51362-8) NRBC/100 WBC (test See_Comment [Automat ed code = 2390865190) message] The system which generated this result transmitted reference range : 0.0 - 10.0 /100 WBCs. The refer ence range was not u sed to interpret th is result as normal/abnormal . NRBC x10^3 (test code <0.01 See_Comment [Auto mated = 2645416806) message] The s ystem which generated this result transmitted reference range : 10*3/?L. The reference range was not used to interpret this result as normal/abnormal . GRAN MAT (NEUT) % 47.7 % (test code = 770-8) IMM GRAN % (test code 0.60 % = 4562955380) LYMPH % (test code = 39.4 % 736-9) MONO % (test code = 9.4 % 5905-5) EOS % (test code = 2.1 % 713-8) BASO % (test code = 0.8 % 706-2) GRAN MAT x10^3(ANC) 2.55 10*3/uL 1.99-6.95 (test code = 9173602293) IMM GRAN x10^3 (test 0.03 10*3/uL 0-0.06 code = 8769122269) LYMPH x10^3 (test code 2.10 10*3/uL 1.09-3.23 = 731-0) MONO x10^3 (test code 0.50 10*3/uL 0.36-1.02 = 742-7) EOS x10^3 (test code = 0.11 10*3/uL 0.06-0.53 711-2) BASO x10^3 (test code 0.04 10*3/uL 0.01-0.09 = 704-7) Lab Interpretation Abnormal (test code = 61897-6) [facility] METABOLIC PANEL (NA, K, CL, CO2, GLUCOSE, BUN, CREATININE, CA)2020-05-13 07:17:00 Test Item Value Reference Range Interpretation Comments NA (test code = 138 mmol/L 135-145 5929078161) K (test code = 3.6 mmol/L 3.5-5 5290822654) CL (test code = 105 mmol/L 98-108 0580976842) CO2 TOTAL (test code = 27 mmol/L 23-31 7957227681) AGAP (test code = 2-16 3807432625) BUN (test code = 10 mg/dL 7-23 1049202217) GLUCOSE (test code = 115 mg/dL 70-110 H 0633924304) CREATININE (test code = 0.82 mg/dL 0.6-1.25 5546322907) CALCIUM (test code = 8.9 mg/dL 8.6-10.6 8712955961) eGFR Calculation mL/min/1.73m2 (Non-) (test code = 8052640923) eGFR Calculation mL/min/1.73m2 () (test code = 5400053934) MORIS (test code = MORIS) Association of Glomerular Filtration Rate (GFR) and Staging of Kidney Disease* + --+ --+ ------+| GFR (mL/min/1.73 m2) ?| With Kidney Damage ?| ?Without Kidney Damage+ --------+ --------+ +| ?>90 ?| ?Stage one ?| ? Normal ?+ ---+ ---+ -------+| ?60-89 ?| ?Stage two ?| ? Decreased GFR ? + --+ --+ ------+| ?30-59 ?| ?Stage three ?| ? Stage three ? + --+ --+ ------+| ?15-29 ?| ?Stage four ? | ? Stage four ?+ ---+ ---+ -------+| ?<15 (or dialysis) ? ?| ?Stage five ? | ? Stage five ?+ ---+ ---+ -------+ *Each stage assumes the associated GFR level has been in effect for at least three months. ?Stages 1 to 5, with or without kidney disease, indicate chronic kidney disease. Notes: Determination of stages one and two (with eGFR >59mL/min/1.73 m2) requires estimation of kidney damage for at least three months as defined by structural or functional abnormalities of the kidney, manifested by either:Pathological abnormalities or Markers of kidney damage (including abnormalities in the composition of the blood or urine or abnormalities in imaging tests). Lab Interpretation Abnormal (test code = 50019-0) [facility]for use with Heparin Practice Guideline). Note: Draw and Send all Lab STAT.2020-05-13 07:00:00 Test Item Value Reference Range Interpretation Comments APTT Patient (test code See_Comment H [Au tomated message] = 3173-2) The system Cabe[employer] generated this result transmitted ref erence range: 26 - 36 Seconds. The reference range was not used to int erpret this result as normal/abnormal . Lab Interpretation (test Abnormal code = 54127-2) [facility] UPPER EXTREMITY VEIN WITH COMPRESSION LEFT (ONLY FOR RULE OUT DVT)2020-05-13 01:25:03 Distal cephalic vein thrombophlebitis at the level of antecubital fossa.Regional soft tissue inflammatory changes. Possible subcutaneous fluidcollection. Left axillary vein thrombosis. Further evaluation with contrast-enhanced CT is recommended. Preliminary Report Dictated by Resident: Abad Corado MD., have reviewed this study and agree with the abovereport.SOFT TISSUE ULTRASOUND HISTORY: ?Swollen, redness, and pain to left distal arm/elbow after selfinjected Math about 6 daysago, worsens COMPARISON: No prior studies are available for comparison. TECHNIQUE: Lacy scale and Doppler interrogation of antecubital soft tissueand the right upper extremity venous system was performed. FINDINGS: ? Right Upper Extremity Venous System: Internal jugular vein: Patent without thrombus. Subclavian vein: Patent without thrombus. Pulsatility is indirect evidenceof central patency. Axillary vein: Not compressible and demonstrate ?low level internal echoeson transverse image (#11). On longitudinal images the left axillary vein isdistended with hypoechoic material and demonstrate incomplete color signal.These findings are concerning of DVT. Paired basal veins: Patent without thrombus. Superficial cephalic vein at the level of the mid arm: Partiallycompressible with good color signal and Doppler waveform. The cephalic vein at the level of of antecubital fossa: Noncompressible anddemonstrate heterogenous low level internal echoes with no color signal andfaint Doppler waveform. Additionally, the surrounding subcutaneous fat issignificantly edematous, with hypoechoic tissue projections between fatlobules. Somewhat organized appearance of hypoechoic tissue noted near theskin, possibly a fluid collection. Superficial basilic vein at the level of mid arm: Patent without thrombus. [facility], Radiant Results Inft User - 05/12/2020 8:26 PM CDTSOFT TISSUE ULTRASOUND HISTORY: Swollen, redness, and pain to left distal arm/elbow after selfinjected Math about 6 days ago, worsens COMPARISON: No prior studies are available for comparison.TECHNIQUE: Lacy scale and Doppler interrogation of antecubital soft tissueand the right upper extremity venous system was performed.FINDINGS: Right Upper Extremity Venous System:Internal jugular vein: Patent without thrombus.Subclavian vein: Patent without thrombus.Pulsatility is indirect evidenceof central patency.Axillary vein: Not compressible and demonstrate low level internal echoeson transverse image (#11). On longitudinal images the left axillary vein isdistended with hypoechoic material and demonstrate incomplete color signal.These findings are concerning of DVT.Paired basal veins: Patent without thrombus.Superficial cephalic vein at the level of the mid arm: Partiallycompressible with good color signal and Doppler waveform.The cephalic vein at the level of of antecubital fossa: Noncompressible anddemonstrate heterogenous low level internal echoes with no color signal andfaint Doppler waveform. Additionally, the surrounding subcutaneous fat issignificantly edematous, with hypoechoic tissue projections between fatlobules. Somewhat organized appearance of hypoechoic tissue noted near theskin, possibly a fluid collection.Superficial basilic vein at the level of mid arm: Patent without thrombus.IMPRESSIONDistal cephalic vein thrombophlebitis at the level of antecubital fossa.Regional soft tissue inflammatory changes. Possible subcutaneous fluidcollection.Left axillary vein thrombosis.Further evaluation with contrast-enhanced CT is recommended. Preliminary Report Dictated by Resident: Abad Corado MD., have reviewed this study and agree with the abovereport.[facility] (for use with Heparin Practice Guideline). Note: Draw and Send all Lab STAT.2020-05-12 23:38:00 Test Item Value Reference Range Interpretation Comments APTT Patient (test code See_Comment H [Au tomated message] = 3173-2) The system Cabe[employer] generated this result transmitted ref erence range: 26 - 36 Seconds. The reference range was not used to int erpret this result as normal/abnormal . Lab Interpretation (test Abnormal code = 21648-9) [facility] [id number] 14:49:00 Test Item Value Reference Range Interpretation Comments CRP (test code = 3415019314) 1.1 mg/dL <0.8 H Lab Interpretation (test code = Abnormal 16597-1) [facility] CenterCT HUMERUS LEFT W [id number] 14:27:07 Cellulitic and phlegmonous changes surrounding the left elbow and distalarm with a 4.8 cm subcutaneous abscess overlying the antecubital fossa.This fluid collection lies superficial to the distal longhead of thebiceps and obliterates the distal cephalic vein, compatible withthrombophlebitis. No radiopaque foreign bodies. No acute bony abnormality. Preliminary Report Dictated by Resident: Lyndon Pagan I, Mk Cooley MD., have reviewed this study and agree with the abovereport.EXAM: CT HUMERUSLEFT W CONTRAST HISTORY: left upper swelling and pain after self inject math 6 days ago. USshows DVT, alsl fluids collection surrounding DVT. recommended CT TECHNIQUE: Helical CT scan of the left humerus was performed after theuncomplicated administration of 100 cc of Omnipaque intravenous contrastresolution. Coronal and sagittal reconstructions were then generated. COMPARISON: Same day left arm venous ultrasound. FINDINGS: CT imaging of the left humerus demonstrate a heterogenous thick-walledcollection within the antecubital fossa overlying the distal long head ofthe biceps muscle belly measuring approximately 2.8 x 4.6 x 4.8 cm (AP x TVx CC). No radiopaque foreign bodies are detected. This collectionobliterates the distal cephalic vein which is suggestive of thrombosis.Diffuse thickened subcutaneous inflammatory stranding and skin thickeningsurrounds the distal humerus and elbow. No acute fracture is detected. The bony structures exhibit no osteolysis orperiosteal reaction. The joint spaces and alignment are maintained. [facility], Radiant Results Inft User - 05/12/2020 9:28 AM CDTEXAM: CT HUMERUSLEFT W CONTRASTHISTORY: left upper swelling and pain after self inject math 6 days ago. USshows DVT,alsl fluids collection surrounding DVT. recommended CT TECHNIQUE: Helical CT scan of the left humerus was performed after theuncomplicated administration of 100 cc of Omnipaque intravenous contrastresolution. Coronal and sagittal reconstructions were then generated.COMPARISON: Same day left arm venous ultrasound.FINDINGS:CT imaging of the left humerus demonstrate a heterogenous thick-walledcollectionwithin the antecubital fossa overlying the distal long head ofthe biceps muscle belly measuring approximately 2.8 x 4.6 x 4.8 cm (AP x TVx CC). No radiopaque foreign bodies are detected. This collectionobliterates the distal cephalic vein which is suggestive of thrombosis.Diffuse thickened subcutaneous inflammatory stranding and skin thickeningsurrounds the distal humerus and elbow.No acute fracture is detected. The bony structures exhibit no osteolysis orperiosteal reaction. The joint spaces and alignment are maintained.IMPRESSIONCellulitic and phlegmonous changes surrounding the left elbow and distalarm with a 4.8 cm subcutaneous abscess overlying the antecubital fossa.This fluid collection liessuperficial to the distal long head of thebiceps and obliterates the distal cephalic vein, compatible withthrombophlebitis.No radiopaque foreign bodies.No acute bony abnormality.Preliminary Report Dictated by Resident: Lyndon Valverde, Mk Cooley MD., have reviewed this study and agree with the abovereport.[facility] CenterGALV/CLC ONLY - URINE DRUG (IMMUNOASSAY) - COMPREHENSIVE DRUG [id number] 12:24:00 Test Item Value Reference Range Interpretation Comments AMPHET (test code = Negative Negative 0909205480) DEISY U (test code = Negative Negative 5546933928) BENZO U (test code = Negative Negative 4324113277) Cocaine Metabolite (test Negative Negative code = 1692431991) METHADONE (test code = Negative Negative 3494447462) OPIATES (test code = Presumptive Positive Negative A 1095912105) PCP (test code = Negative Negative 6985922148) THC (test code = Negative Negative 0224955017) MORIS (test code = MORIS) Urine Drug Cutoff Ranges Cocaine: ? 150 ng/mLBenzodiazepines: ? ? 200 ng/mLMethadone: ? 300 ng/mLAmphetamine: ? 1,000 ng/mLOpiates: ? 300 ng/mLCannabinoids: ?50 ng/mLPhencyclidine: ? ? ? 25 ng/mLBarbiturates: ?200 ng/mL The results are to be used only for medical (i.e., treatment) purposes. Unconfirmed screening results must not be used for non-medical purposes (e.g., employment testing, legal testing). Lab Interpretation (test Abnormal code = 00610-6) [facility]2020-08-01 12:00:00 Test Item Value Reference Range Interpretation Comments APTT Patient (test code = See_Comment [ Automated message] 3173-2) The system Cabeo generated this result transmitted ref erence range: 26 - 36 Seconds. The re ference range was not u sed to interpret this result as normal/abnor mal. Lab Interpretation (test Normal code = 75296-2) [facility] CenterXR ELBOW <3 VW [id number] 10:32:43 Soft tissue findings suggestive of cellulitis. No soft tissue gas or radiopaque foreign body. No acute bony abnormality. Preliminary Report Dictated by Resident: Lyndon Pagan I, Mk Cooley MD.,have reviewed this study and agree with the abovereport.EXAM: XR ELBOW <3 VW LEFT HISTORY: Swollen, redness, and pain to left distal upper arm/elbow afterself injected Math about 6 days ago, worsensCOMPARISON: None available. FINDINGS: Radiographs of the left elbow demonstrate no radiopaque foreign bodies.Mild to moderate soft tissue stranding is present. No soft tissue gas isdetected. No acute fracture is seen. The joint spaces and alignment aremaintained. [facility], Radiant Results Inft User - 05/12/2020 5:33 AM CDTEXAM: XR ELBOW <3 VW LEFTHISTORY: Swollen, redness, and pain to left distal upper arm/elbow afterself injected Math about 6 days ago, worsens COMPARISON: None available.FINDINGS:Radiographs of the left elbow demonstrate no radiopaque foreign bodies.Mild to moderate soft tissue stranding is present. No soft tissue gas isdetected. No acute fracture is seen. The joint spaces and alignment aremaintained.IMPRESSIONSoft tissue findings suggestive of cellulitis. No soft tissue gas or radiopaque foreign body.No acute bony abnormality.Preliminary Report Dictated by Resident: Lyndon Valverde, Mk Cooley MD., have reviewed this study and agree with the abovereport.[facility] CenterHCV [id number] 09:12:00 Test Item Value Reference Range Interpretation Comments HCV Ab (test code = 50581-5) Negative HCV Semi-Quantitative (test code = 34493-3) [facility] CenterHEPATITIS B SURFACE [id number] 09:03:00 Test Item Value Reference Range Interpretation Comments HBsAB (test code = Positive 3836415517) HBsAb mIU/mL Semi-Quantitative (test code = 6265029047) MORIS (test code = Interpretation: MORIS) ?Hepatitis B Surface Antibody ? Negative - Patient is considered to be not immune to infection with HBV. ? ? Positive - Anti-HBs detected at greater than or equal to 12 mIU/mL. ?Patient is considered to be immune to infection with HBV. ? [facility] CenterHBC ANTIBODY (IGM & IGG)2020-05-12 09:03:00 Test Item Value Reference Range Interpretation Comments HBC (test code = 2276502099) Negative HBC Semi-Quantitative (test code = 7651411193) [facility] CenterPROTHROMBIN TIME / [id number] 07:00:00 Test Item Value Reference Range Interpretation Comments PROTIME PATIENT (test See_Comment [Auto mated message] code = 5964-2) The system OneName generated this result transmitted ref erence range: 10.1 - 1 2.6 Seconds. The re ference range was not u sed to interpret this result as normal/abnor mal. INR (test code = 6301-6) Nor mal INR <1.1; Warfarin Therap eutic range 2.0 to 3. 0 or 2.5 to 3.5, dep ending upon the indica tions. Lab Interpretation (test Normal code = 86220-1) [facility]2020-08-01 07:00:00 Test Item Value Reference Range Interpretation Comments APTT Patient (test code = See_Comment [ Automated message] 3173-2) The system [employer] h generated this result transmitted ref erence range: 26 - 36 Seconds. The re ference range was not u sed to interpret this result as normal/abnor mal. Lab Interpretation (test Normal code = 37987-8) [facility] CenterSEDIMENTATION [id number] 05:08:00 Test Item Value Reference Range Interpretation Comments ESR (test code = See_Comment H [Automated message] 6258322633) The system whic h generated this result transmitted ref erence range: 0 - 10 m m/HR. The reference r kiran was not used to interpret this result as normal/abnor mal. Lab Interpretation (test Abnormal code = 42484-3) [facility] WITH [id number] 04:52:00 Test Item Value Reference Range Interpretation Comments WBC (test code = See_Comment [Automated 6690-2) message] The sy stem which generated this result transmitted reference range : 4.20 - 10.70 10*3/?L. The reference range was not used to interpret this result as normal/abnormal . RBC (test code = See_Comment [Automated 789-8) message] The sy stem which generated this result transmitted reference range : 4.26 - 5.52 10*6/?L. The reference range was not used to interpret this result as normal/abnormal . HGB (test code = 13.5 g/dL 12.2-16.4 718-7) HCT (test code = 41.2 % 38.4-49.3 4544-3) MCV (test code = 91.6 fL 81.7-95.6 787-2) MCH (test code = 30.0 pg 26.1-32.7 785-6) MCHC (test code = 32.8 g/dL 31.2-35 786-4) RDW-SD (test code = 43.5 fL 38.5-51.6 71121-7) RDW-CV (test code = 13.2 % 12.1-15.4 788-0) PLT (test code = See_Comment H [Automated 777-3) message] The sy stem which generated this result transmitted reference range : 150 - 328 10*3/ ?L. The reference r kiran was not used to interpret this result as normal/abnormal . MPV (test code = 11.1 fL 9.8-13 89293-2) NRBC/100 WBC (test See_Comment [Automat ed code = 5395756094) message] The system which generated this result transmitted reference range : 0.0 - 10.0 /100 WBCs. The refer ence range was not u sed to interpret th is result as normal/abnormal . NRBC x10^3 (test code <0.01 See_Comment [Auto mated = 6436986498) message] The s ystem which generated this result transmitted reference range : 10*3/?L. The reference range was not used to interpret this result as normal/abnormal . GRAN MAT (NEUT) % 59.8 % (test code = 770-8) IMM GRAN % (test code 0.10 % = 0435779051) LYMPH % (test code = 29.2 % 736-9) MONO % (test code = 9.3 % 5905-5) EOS % (test code = 1.0 % 713-8) BASO % (test code = 0.6 % 706-2) GRAN MAT x10^3(ANC) 4.04 10*3/uL 1.99-6.95 (test code = 5017425876) IMM GRAN x10^3 (test <0.03 0-0.06 code = 7889896538) LYMPH x10^3 (test code 1.98 10*3/uL 1.09-3.23 = 731-0) MONO x10^3 (test code 0.63 10*3/uL 0.36-1.02 = 742-7) EOS x10^3 (test code = 0.07 10*3/uL 0.06-0.53 711-2) BASO x10^3 (test code 0.04 10*3/uL 0.01-0.09 = 704-7) REACT LYMPHS (test Rare code = 3837485503) Lab Interpretation Abnormal (test code = 93069-9) [facility] CenterCOVID-19 (ID NOW RAPID TESTING)2020-05-12 04:35:00 Test Item Value Reference Range Interpretation Comments SARS-CoV-2 Rapid ID NOW Not Detected Not Detected (test code = 26524-8) MORIS (test code = MORIS) ID NOW COVID-19 Assay is an isothermal nucleic acid amplification test intended for the qualitative detection of nucleic acid from SARS-CoV-2 viral RNA in nasopharyngeal ([employer]) specimens. It is used under Emergency Use Authorization (EUA) by FDA. The limit of detection (LOD) of the assay is 125 Genome Equivalents/mL. A positive result is indicative of the presence of SARS-CoV-2 RNA. ?Clinical correlation with patient history and other diagnostic information is necessary to determine patient infection status. A negative (Not Detected) result does not preclude SARS-CoV-2 infection. In patients with clinical symptoms and other tests that are consistent with SARS-CoV-2 infection, negative results should be treated as presumptive negative and a new specimen should be tested with alternative PCR molecular test. Invalid: Please collect a new specimen for repeat patient testing if clinically indicated. Lab Interpretation Normal (test code = 06622-0) [facility]. METABOLIC PANEL (49815)2020-05-12 04:30:00 Test Item Value Reference Range Interpretation Comments NA (test code = 139 mmol/L 135-145 6221096361) K (test code = 4.3 mmol/L 3.5-5 1229654458) CL (test code = 107 mmol/L 98-108 0497928514) CO2 TOTAL (test code = 27 mmol/L 23-31 3328019555) AGAP (test code = 2-16 4013095935) BUN (test code = 8 mg/dL 7-23 6974930570) GLUCOSE (test code = 90 mg/dL 70-110 9638781719) CREATININE (test code 0.62 mg/dL 0.6-1.25 = 2751393801) TOTAL BILI (test code 0.3 mg/dL 0.1-1.1 = 0617245212) CALCIUM (test code = 9.1 mg/dL 8.6-10.6 3730590867) T PROTEIN (test code = 6.6 g/dL 6.3-8.2 4185654086) ALBUMIN (test code = 3.7 g/dL 3.5-5 8819951102) ALK PHOS (test code = 60 U/L 34-122 3569742248) ALTv (test code = 30 U/L 5-50 1742-6) AST(SGOT) (test code = 25 U/L 13-40 5140209964) eGFR Calculation mL/min/1.73m2 (Non-) (test code = 5711589197) eGFR Calculation mL/min/1.73m2 () (test code = 7089581505) MORIS (test code = MORIS) Association of Glomerular Filtration Rate (GFR) and Staging of Kidney Disease* + -+ + ---+| GFR (mL/min/1.73 m2) ?| With Kidney Damage ?| ?Without Kidney Damage+ -------+ ------+ ---------+| ?>90 ?| ?Stage one ?| ? Normal ?+ --+ -+ ----+| ?60-89 ?| ?Stage two ?| ? Decreased GFR ? + -+ + ---+| ?30-59 ?| ?Stage three ?| ? Stage three ? + -+ + ---+| ?15-29 ?| ?Stage four ? | ? Stage four ?+ --+ -+ ----+| ?<15 (or dialysis) ? ?| ?Stage five ? | ? Stage five ?+ --+ -+ ----+ *Each stage assumes the associated GFR level has been in effect for at least three months. ?Stages 1 to 5, with or without kidney disease, indicate chronic kidney disease. Notes: Determination of stages one and two (with eGFR >59mL/min/1.73 m2) requires estimation of kidney damage for at least three months as defined by structural or functional abnormalities of the kidney, manifested by either:Pathological abnormalities or Markers of kidney damage (including abnormalities in the composition of the blood or urine or abnormalities in imaging tests). [facility]"
--- NOTE | 2022-08-17 01:45 | ER ---
Nurse's Notes [facility] Name: Salas Walker Age: 37 yrs Sex: Male : 1985 Arrival Date: 08/16/2022 Time: 23:16 Bed 16 Private MD: Diagnosis: Scrotal pain Presentation: 08/16 23:23 Chief complaint: Patient states: Pt reports intermittent testicular pain since kb3 yesterday. Multiple plaques noted to testicles, no discoloration noted. Pt reports he "doesn't urinate very much because he is using meth all day, every day" but denies pain with urination. 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 Coronavirus screen: Vaccine status: Patient reports being unvaccinated. Client denies travel out of the [place] in the last 14 days. Ebola Screen: Patient negative for fever greater than or equal to 101.5 degrees Fahrenheit, and additional compatible Ebola Virus Disease symptoms Patient denies exposure to infectious person. Patient denies travel to an Ebola-affected area in the 21 days before illness onset. Initial Sepsis Screen: Does the patient meet any 2 criteria? No. Patient's initial sepsis screen is negative. Does the patient have a suspected source of infection? No. Patient's initial sepsis screen is negative. Risk Assessment: Do you want to hurt yourself or someone else? Patient reports no desire to harm self or others. Onset of symptoms was August 15, 2022. 23:23 Method Of Arrival: Wheelchair [facility] 23:23 Acuity: DARI 4 kb3 Triage Assessment: 23:27 General: Appears slender, unkempt, Behavior is drowsy, flat. Pain: Complains of pain in kb3 groin Pain does not radiate. Pain currently is 10 out of 10 on a pain scale. Historical: - Allergies: 23:27 No Known Allergies; 3 - Home Meds: 23:27 None [Active]; kb3 - PMHx: 23:27 Drug abuse; kb3 - PSHx: 23:27 None; kb3 - Immunization history:: Adult Immunizations unknown, Client reports having NOT received the Covid vaccine. Last tetanus immunization: unknown. - Social history:: Smoking status: Patient reports the use of cigarette tobacco products, smokes one pack cigarettes per day. Patient uses street drugs, Methamphetamine (Meth). Screenin:30 Abuse screen: Denies threats or abuse. Nutritional screening: No deficits noted. ke1 Tuberculosis screening: No symptoms or risk factors identified. Fall Risk None identified. Assessment: 08/17 01:17 Reassessment: Patient still unable to give urine at this time water provided. ke1 Vital Signs: 08/16 23:23 BP 124 / 66; Pulse 68; Resp 20; Temp 97; Pulse Ox 98% ; Weight 76.66 kg; Height 5 ft. 7 kb3 in. (170.18 cm); Pain 10/10; 23:23 Body Mass Index 26.47 (76.66 kg, 170.18 cm) kb3 ED Course: 23:16 Patient arrived in ED. ja2 23:18 Beverley Nye FNP-C is PHCP. kb 23:18 Kiel Crandall MD is Attending Physician. kb 23:27 Triage completed. kb3 23:27 Arm band placed on right wrist. kb3 08/17 00:35 US Scrotum Testicles In Process Unspecified. EDMS 00:41 Gabi Myrick, RN is Primary Nurse. ke1 01:22 No provider procedures requiring assistance completed. Patient did not have IV access ke1 during this emergency room visit. 01:26 Bed in low position. Call light in reach. Adult w/ patient. ke1 Administered Medications: No medications were administered Medication: 01:23 VIS not applicable for this client. ke1 Outcome: 01:22 Discharged to home ambulatory. ke1 01:22 Condition: good 01:22 Discharge instructions given to patient. 01:23 Patient left the ED. ke1 01:44 Discharge ordered by . kdr Signatures: Dispatcher [employer] EDMN Beverley Nye FNP-C FNP-Ckb Rittger, Kevin, MD MD kdr Alexander, Jessica ja2 Gabi Myrick, SHAZIA RN ke1 Lisa Low, SHAZIA RN kb3
--- NOTE | 2022-08-17 01:45 | EDPHYS ---
Physician Documentation [facility] Name: Salas Walker Age: 37 yrs Sex: Male : 1985 Arrival Date: 08/16/2022 Time: 23:16 Bed 16 Private MD: ED Physician Kiel Crandall HPI: 08/17 00:08 This 37 yrs old Male presents to ER via Wheelchair with complaints of Groin Pain, kb Testicular Pain. 00:08 The patient presents with scrotal pain, of both sides, without swelling, without kb erythema. Onset: The symptoms/episode began/occurred yesterday. Modifying factors: The symptoms are alleviated by nothing, the symptoms are aggravated by nothing. Associated signs and symptoms: The patient has no apparent associated signs or symptoms. Severity of symptoms: At their worst the symptoms were moderate, in the emergency department the symptoms are unchanged. The patient has not experienced similar symptoms in the past. The patient has not recently seen a physician. Pt reports testicular pain that started yesterday. Denies any other symptoms. Reports he does meth "all day every day." Pt under the influence of meth at time of assessment. Historical: - Allergies: 08/16 23:27 No Known Allergies; kb3 - Home Meds: 23:27 None [Active]; kb3 - PMHx: 23:27 Drug abuse; kb3 - PSHx: 23:27 None; kb3 - Immunization history:: Adult Immunizations unknown, Client reports having NOT received the Covid vaccine. Last tetanus immunization: unknown. - Social history:: Smoking status: Patient reports the use of cigarette tobacco products, smokes one pack cigarettes per day. Patient uses street drugs, Methamphetamine (Meth). ROS: 08/17 00:07 Constitutional: Negative for fever, chills, and weight loss. kb : Positive for testicular pain All other systems are negative. Exam: 00:07 Constitutional: This is a well developed, well nourished patient who is awake, alert, kb and in no acute distress. Head/Face: Normocephalic, atraumatic. ENT: Moist Mucous membranes Cardiovascular: Regular rate and rhythm with a normal S1 and S2. No gallops, murmurs, or rubs. No pulse deficits. Respiratory: Respirations even and unlabored. No increased work of breathing. Talking in full sentences Abdomen/GI: Soft, non-tender. No distention Male : Normal genitalia with no discharge or lesions. Skin: Warm, dry with normal turgor. Normal color. MS/ Extremity: Pulses equal, no cyanosis. Neurovascular intact. Full, normal range of motion. Neuro: Awake and alert, GCS 15, oriented to person, place, time, and situation. Moves all extremities. Normal gait. Vital Signs: 08/16 23:23 BP 124 / 66; Pulse 68; Resp 20; Temp 97; Pulse Ox 98% ; Weight 76.66 kg; Height 5 ft. 7 kb3 in. (170.18 cm); Pain 10/; 23:23 Body Mass Index 26.47 (76.66 kg, 170.18 cm) kb3 MDM: 23:18 Patient medically screened. kb 08/17 00:07 Data reviewed: vital signs, nurses notes. Data interpreted: Pulse oximetry: on room air kb is 98 %. Interpretation: normal. 00:51 Transition of care: After a detail discussion of the patient's case, care is kb transferred to Kiel Crandall MD. 01:39 Counseling: I had a detailed discussion with the patient and/or guardian regarding: the kdr historical points, exam findings, and any diagnostic results supporting the discharge/admit diagnosis, lab results, radiology results, the need for outpatient follow up. Medical screen evaluation completed. EMTALA emergency medical condition absent. ED course: I examined and evaluated the patient. The scrotum is overall normal in texture and consistency. There is no obvious induration of tissue. There are no significant cutaneous lesions. There was considerable lubricant from the prior ultrasound evaluation. Patient did have some tenderness with palpation of his scrotum but the tear perineum was nontender to deep palpation. I discussed the findings on the ultrasound with the [facility] physician, specifically the notation of possible lesions. I informed him that as far as I could see from the prior evaluation by the nurse practitioner, there were no lesions noted at that time further on my exam there were also no lesions. Patient was otherwise stable in the ED. Patient also complained of tenderness and possible infection to his left great toe. He was unable to really participate in the exam or the discussion about the infection. He was very somnolent during my evaluation. There was minor erythema to the lateral aspect of the nail on the left great toe. There was no drainage or abscess noted. 08/16 23:21 Order name: US Scrotum Testicles kb 08/17 00:02 Order name: Urine Dipstick-Ancillary (obtain specimen) Administered Medications: No medications were administered Disposition: 01:39 Co-signature as Attending Physician, Kiel Crandall MD I agree with the assessment and kdr plan of care. Disposition Summary: 08/17/22 01:44 Discharge Ordered Location: Home kdr Condition: Stable kdr Diagnosis - Scrotal pain kdr Followup: kb - With: Emergency Department - When: As needed - Reason: Worsening of condition Followup: kb - With: Private Physician - When: 2 - 3 days - Reason: Recheck today's complaints, Continuance of care, Re-evaluation by your physician Discharge Instructions: - Discharge Summary Sheet kb - Testicular Self-Exam, [id number] kb - Cellulitis, Adult, [id number] kdr Forms: - Medication Reconciliation Form kdr - Thank You Letter kdr - Antibiotic Education kdr Prescriptions: - Cipro 500 mg Oral Tablet - take 1 tablet by ORAL route every 12 hours for 7 days; 14 tablet; Refills: 0, kdr Product Selection Permitted Signatures: Dispatcher [employer] EDMS Beverley Nye, DRYLAND FARMER-C DRYLAND FARMER-Finnb Kiel Crandall MD MD kdr Lisa Low, RN RN kb3 Corrections: (The following items were deleted from the chart) 00:51 00:07 Counseling: I had a detailed discussion with the patient and/or guardian dilcia regarding: the historical points, exam findings, and any diagnostic results supporting the discharge/admit diagnosis, radiology results, the need for outpatient follow up, a urologist, to return to the emergency department if symptoms worsen or persist or if there are any questions or concerns that arise at home, kb
[2022-08-17 03:21] VITALS: BP 124/66; TEMP 97; O2SAT 98
--- NOTE | 2022-08-17 21:14 | RAD REPORT ---
EXAM DESCRIPTION: ADDENDUM #1 Addendum: Previously described bilateral scrotal thickening is mild/upper limits of normal, measuring between 0 .5 to up to 0.8 cm depending on where measured. While a mild cellulitis or other inflammatory process cannot be excluded, the overall appearance of amy perkins scrotum is within normal limits. Dr. Galicia discussed these findings with Dr. Crandlal via telephone at approximately 01:40 hours APPRENTICE PAINTER HAND on 08/17/2022. Electronically signed by: Hunter Galicia MD 08/17/2022 1:40 AM APPRENTICE PAINTER HAND End of Addendum IMPRESSION: US Scrotum CLINICAL HISTORY: The patient is 37 years old and is Male; testicular pain , reported sores/lesions/ calluses on bilateral scrotal service per technologist TECHNIQUE: Real-time ultrasound of the scrotum with color Doppler and image documentation. COMPARISON: No relevant prior studies available. FINDINGS: RIGHT TESTICLE: Unremarkable. No torsion. Normal internal blood flow and low resistanc e arterial waveforms. The right testicle measures 5.6 x 2.5 x 3.3 cm. LEFT TESTICLE: Unremarkable. No torsion. Normal internal blood flow and low resistance arterial w aveforms. The left testicle measures 4.8 x 2 x 3.3 cm. EPIDIDYMIDES: Unremarkable. SCROTUM: Slight thickening of the scrotum bilaterally, nonspecific, with subtle shadowing [place] deep to the scrotum, presumably related to reported skin lesions on physical exam. Trace left-sided hydrocele. Equivocal left inguinal varicocele. IMPRESSION: 1. Slight thickening of the scrotum bilaterally, nonspecific, with subtle shadowing de monstrated deep to the scrotum, presumably related to reported skin lesions on physical exam. 2. Normal internal testicular and epididymal blood flow bilaterally with no evidence of torsion or other acute process. 3. Trace left-sided hydrocele. 4. Equivocal left inguinal varicocele. Electronically signed by: Hunter Galicia MD 08/17/2022 12:59 AM CDT Due to temporary technical issues with the PACS/Fluency reporting system, reports are being signed by the in house radiologists without review as a courtesy to insure prompt reporting. The interpreting radiologist is fully responsible for the content of the report.
== END 2022-08-17 01:23 | disposition home or self-care (01) ==
LOC: ER 23:15
DX: N50.82 Scrotal pain (principal); F17.210 Nicotine dependence, cigarettes, uncomplicated
CPT/HCPCS: 76870; 99283

== ENCOUNTER 2023-02-18 19:57 | Emergency (ER) | payer SELFPAY ==
--- OUTSIDE RECORDS SUMMARY | 2023-02-18 20:02 | XMS REPORT | Continuity of Care Document ---
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 Thrombophl Thrombophl Disease Active U nivers ebitis arm ebitis arm 804 it y of 00:00: [place] [facility] Cutaneous Cutaneous Disease Active Uni vers abscess of abscess of 05-12 it y of left upper left upper 00:[place] limb limb [place] Obesity Obesity Disease Active Univers (BMI (BMI 8 ity of 30-39.9) 30-39.9) 00:00: [place] [facility] Cutaneous Cutaneous Disease Active Uni vers abscess of abscess of 05-12 it y of left upper left upper 00:[place] [facility] Allergies, Adverse Reactions, Alerts Allergy Allergy Status Severity Reaction(s) Onset Inactive Treating Comm ents Source Name Type Date Date Clinician METRONID DRUG Active SOB Univers AZOLE INGREDI 5-02 ity of HCL 00:00: [place] [facility] Metronid Propensi Active Shortness of Univers azole ty to Breath 5-02 ity of Hcl adverse 00:00: [place] reaction 00 [facility] [place] Social History Social Habit Start Date Stop Date Quantity Comments Source History of Current smoker [facility] tobacco use [facility] Exposure to 2022-07-14 2022-07-24 Not sure [facility] SARS-CoV-2 00:00:00 05:30:00 [facility] (event) [place] Alcohol intake 2021-05-08 2021-05-08 Ex-drinker [facility] 00:00:00 00:00:00 (finding) [facility] Tobacco use and 2020-05-12 2020-05-12 Smokeless tobacco Un iversity of exposure 00:00:00 00:00:00 non-user [facility] Sex [birth year] At [birth year] Universit y of 00:00:00 00:00:00 [facility] Smoking Status Start Date Stop Date Source Ex-smoker 2020-05-12 00:00:00 2020-05-12 00:00:00 Universi ty of [facility] Medications Ordered Filled Start Stop Current Ordering Indication Dosage Frequency Signature Comments Components Source Medication Medication Date Date Medication? Clinician (SIG) Name Name acyclovir 2021-10 Yes [id number] 400mg Take 2 U nivers 200 mg 0-13 capsules ity of capsule 00:00: by mouth [place] 00 every 8 Medical (eight) Branch hours. cephALEXin 2021-10 Yes [id number] 500mg Take 1 Univers (KEFLEX) 0- 9108 capsule by ity o f 500 mg 00:00: mouth in [place] capsule 00 the morning Branch and 1 capsule at noon and 1 capsule in the evening. cephALEXin 2021-10- No [id number] 500mg Take 1 Univers (KEFLEX) 0-07-24 9108 capsule by ity of 500 mg 00:00: 00:00 mouth in [place] capsule 00 :00 the Medical morning Branch and 1 capsule at noon and 1 capsule in the evening. Do all this for 10 days. acyclovir 2021-10- No [id number] 400mg Take 2 Univers 200 mg 0-13 - capsules ity of capsule 00:00: 00:00 by mouth [place] 00 :00 every 8 Medical (eight) Branch hours for 10 days. ibuprofen 2020- No 600mg 600 mg, Uni vers (IBU) 05-08 Oral, ity of tablet 600 14:45: 13:56 ONCE, 1 Toño as mg 00 :00 dose, Thu05/08/21 at Branch 0945, SAIGE amoxicillin 2020- No [id number] 1{tbl} Take 1 Univers -clavulanat 05-08 0808 tablet by it y of e 875-125 00:00: 04:59 mouth [place] mg per 00 :00 every 12 Medical tablet (twelve) Branch hours for 10 days. HYDROcodone Yes 1{tbl} 1 tablet, Univers -acetaminop 05-15 Oral, ity of hen (NORCO 20:00: Q6HPRN, [place] 5) 5-325 mg 00 Starting Medi jasmin tablet 1 Thu05/15/20 Branc h tablet at 1500, Until Discontinu ed, Routine, Pain (scale 7-10) LORazepam 2019- Yes .5mg 0.5 mg, Unive rs (ATIVAN) 8 Oral, ity of tablet 0.5 17:45: Q6HPRN, [place] mg 00 Starting Medical Thu20 Branch at 1245, Until Discontinu ed, Routine, Agitation apixaban 2019- No 10mg 10 mg, Univer s (ELIQUIS) 05-15 Oral, BID, ity of tablet 10 16:00: 12:59 14 doses, [place] mg 00 :00 First dose Medical on Thu05/15/20 at 1100, Last dose on Thu05/21/20 at 2000, Routine KCL 2019- No 40meq 40 mEq, Univers (KLOR-CON 05-15 Oral, ONCE ity of M20) tablet 10:15: 11:37 NOW, 1 Toño as 40 mEq 00 :00 dose, [facility] 05/15/20 at Branch 0515, Routine sennosides- Yes [...] by ity of 00:00: 05:59 mouth 2 [place] 00 :00 (two) Medical times Branch daily for 7 days, THEN 1 tablet 2 (two) times daily for 90 days. Indication s: DVT apixaban 5 2019-2019- No Take 2 Univ ers mg tablet 05-15 11-10 tablets by ity of 00:00: 05:59 mouth 2 [place] 00 :00 (two) Medical times Branch daily for 7 days, THEN 1 tablet 2 (two) times daily for 90 days. Indication s: DVT apixaban 5 2019- No Take 2 Univ [...] days. Indication s: DVT apixaban 5 2019- No Take 2 Univ ers mg tablet 8-04 11-10 tablets by ity of 00:00: 05:59 mouth 2 [place] 00 :00 (two) Medical times Branch daily for 7 days, THEN 1 tablet 2 (two) times daily for 90 days. Indication s: DVT apixaban 5 2019- No Take 2 Univ ers mg tablet 8-04 11-10 tablets by ity of 00:00: 05:59 mouth 2 [place] 00 :00 (two) Medical times Branch daily for 7 days, THEN 1 tablet 2 (two) times daily for 90 days. Indication s: DVT apixaban 5 2019- No Take 2 Univ ers mg tablet 8-04 11-10 tablets by ity of 00:00: 05:59 mouth 2 [place] 00 :00 (two) Medical times Branch daily for 7 days, THEN 1 tablet 2 (two) times daily for 90 days. Indication s: DVT apixaban 5 2019- No Take 2 Univ [...] days. Indication s: DVT apixaban 5 2019- No Take 2 Univ [...] by ity of 00:00: 05:59 mouth 2 [place] 00 :00 (two) Medical times Branch daily for 7 days, THEN 1 tablet 2 (two) times daily for 90 days. Indication s: DVT sulfamethox 2019-0 2019- No [id number] 1{tbl} Take 1 Univers azole-trime 05-15 [id number] tablet by ity of thoprim 00:00: 04:59 mouth 2 [place] (BACTRIM 00 :00 (two) Medical DS) 800-160 times Branch mg per daily for tablet 14 days. sulfamethox 2019-0 2019- No [id number] 1{tbl} Take 1 Univers azole-trime 05-15 [id number] tablet by ity of thoprim 00:00: 04:59 mouth 2 [place] (BACTRIM 00 :00 (two) Medical DS) 800-160 times Branch mg per daily for tablet 14 days. sulfamethox 2019-0 2019- No [id number] 1{tbl} Take 1 Univers azole-trime 05-15 [id number] tablet by ity of thoprim 00:00: 04:59 mouth 2 [place] (BACTRIM 00 :00 (two) Medical DS) 800-160 times Branch mg per daily for tablet 14 days. sulfamethox 2019-0 2019- No [id number] 1{tbl} Take 1 Univers azole-trime 05-15 [id number] tablet by ity of thoprim 00:00: 04:59 mouth 2 [place] (BACTRIM 00 :00 (two) Medical DS) 800-160 times Branch mg per daily for tablet 14 days. sulfamethox 2019-0 2019- No [id number] 1{tbl} Take 1 Univers azole-trime 05-15 [id number] tablet by ity of thoprim 00:00: 04:59 mouth 2 [place] (BACTRIM 00 :00 (two) Medical DS) 800-160 times Branch mg per daily for tablet 14 days. sulfamethox 2019-0 2019- No [id number] 1{tbl} Take 1 Univers azole-trime 05-15 [id number] tablet by ity of thoprim 00:00: 04:59 mouth 2 [place] (BACTRIM 00 :00 (two) Medical DS) 800-160 times Branch mg per daily for tablet 14 days. sulfamethox 2020- No [id number] 1{tbl} Take 1 Univers azole-trime 05-15 [id number] tablet by ity of thoprim 00:00: 04:59 mouth 2 [place] (BACTRIM 00 :00 (two) Medical DS) 800-160 times Branch mg per daily for tablet 14 days. morpHINE 2019- No 2mg 2 mg, Univers injection 2 05-14 Intravenou i ty of mg 18:45: 18:55 s, ONCE, 1 [place] 00 :00 dose, [facility] Medical 05/14/20 at Branch 1345, Routine Polyethylen 2019-0 Yes 17g 17 g, Unive rs e Glycol 05-14 Oral, ity of 3350 14:00: DAILY, [place] (MIRALAX) 00 First dose Medi jasmin powder [address] [facility] 05/14/20 at 0900, Until Discontinu ed, Routine vancomycin 2019- Yes 1500mg 1,500 mg, Univers 1500 mg in 05-14 IV ity of NS 500 mL 04:30: [place] 00 Q8H ABX, Medical Piggyback First dose Bran ch RTU 1,500 (after mg last modificati on) on [place] 05/13/20 at 2330, Until Discontinu ed
Reas on for Anti-Infec tive: Empiric Therapy for Suspected Infection< br>Empiric Therapy Site: Blood
D uration of therapy: 72 hours HYDROcodone 2019- 2020- No 1{tbl} 1 tablet, Univers -acetaminop 05-12 Oral, ity of hen (NORCO 19:25: 00:51 Q6HPRN, [place] 5) 5-325 mg 03 :39 Starting Medi jasmin tablet 1 05/12/20 Branc h tablet at 1425, Until 05/14/20 at 1951, SAIGE, Pain (scale 7-10) heparin 2019-2019- No 3000U 3,000 Univers 1,000 05-12 Units, ity of unit/mL 18:00: 15:58 Slow IV [place] injection 00 :39 Push, FOR Medic al 3,000 Units REBOLUSING Br anch , Starting 05/12/20 at 1300, Until Tu05/15/20 at 1058, Routine, for rebolusing heparin STD 2019-0 2019- No 1300U/h 1,300 U nivers 25,000 05-12 Units/hr ity of units/250ml 18:00: 15:58 ( [...] Dosing and Testing: ____ &nbs p; FO Jayda [facility] ONLY - aPTT < 35: & nbsp;Bolus [...] therapeuti c levels are reached.<b r> heparin 2020- No 5000U 5,000 Univers 1000 05-12 Units, IV ity of unit/mL 18:00: 16:40 Push, [place] injection 00 :00 ONCE, 1 Medical Soln 5,000 dose, Sat Bran ch Units 05/12/20 at 1300, Routine thiamine Yes 100mg 100 mg, Unive rs (VITAMIN 05-12 Oral, ity of B1) tablet 14:00: DAILY, [place] 100 mg 00 First dose Medical on [facility] Branch 05/12/20 at 0900, Until Discontinu ed, Routine foLIC acid Yes 1mg 1 mg, Univer s (FOLATE) 05-12 Oral, ity of tablet 1 mg 14:00: DAILY, [place] 00 First dose Medical on [facility] Branch 05/12/20 at 0900, Until Discontinu ed, Routine cefTRIAXone Yes 2000mg 2,000 mg, Univers (ROCEPHIN) 05-12 IV ity of 2,000 mg in 11:45: Piggyback, [place] NaCl 0.9% 00 Q24H ABX, Medic al (NS) 100 mL First dose Br anch MINI-BAG on 05/12/20 at 0645, Until Discontinu ed, 100 mL
R gloria for Anti-Infec tive: Documented Infection< br>Documen [place] Infection Site: Blood<br&g t;Duration of Therapy: 7 days vancomycin 2020- No 15mg/kg 1,250 mg Univers 1250 mg in 05-12 (rounded ity of NS 250 mL 10:45: 03:16 from [place] RTU IV 00 :32 1,327.5 mg Medical [...] Q6HPRN, [place] mg 20 Starting Medical [facility] 05/12/20 Branch at 0534, Until Discontinu ed, Routine, Pain (scale 1-3) pantoprazol 2020- No 40mg Take 40 mg Univers e 05-12 by mouth ity of (PROTONIX) 08:37: 00:00 daily. [place] 40 mg EC 36 :00 Medical tablet Branch LORazepam 2019- No 1mg 1 mg, Univer s (ATIVAN) 05-12 Oral, ity of tablet 1 mg 08:25: 17:32 Q4HPRN, [place] 30 :43 Starting Medical [facility] 05/12/20 Branch at 0325, Until Thu05/15/20 at 1232, Routine, Agitation iohexol 2019- No 100mL 100 mL, Unive rs (OMNIPAQUE 05-12 Intravenou it y of 350 08:23: 08:23 s, ONCE, 1 [place] BULK-100 00 :00 dose, Sat Medica l mL) 05/12/20 at [place] injection 0345, 100 mL Routine morpHINE No 4mg 4 mg, Slow Un sharron injection 4 05-12 IV Push, ity of mg 07:00: 06:32 ONCE, 1 [place] 00 :00 dose, [facility] Medical 05/12/20 at Branch 0200, STAT enoxaparin 2019- No 100mg 100 mg, Un sharron (LOVENOX) 05-12 Subcutaneo ity of injection 07:00: 06:30 [place], ONCE, [place] 100 mg 00 :00 1 dose, Medical [facility] 05/12/20 Branch at 0200, SAIGE HYDROcodone 2019- No 1{tbl} 1 tablet, Univers -acetaminop 05-12 Oral, ity of hen (NORCO 03:30: 04:01 ONCE, 1 [place]ño [place] 5) 5-325 mg 00 :00 dose, Fri Med ical tablet 1 05/11/20 at [facility] h tablet 2230, SAIGE No known No Univers medications ity [facility] No known No Univers medications ity [facility] Immunizations Ordered Filled Immunization Date Status Comments [facility] e Immunization Name Name Td 2021-05-08 Completed University 00:00:00 [facility] Td 2021-05-08 Completed [facility] 00:00:00 [facility] Vital Signs Vital Name Observation Time Observation Value Comments Source Systolic blood 2022-07-24 10:31:00 121 mm[Hg] Univer sity of pressure [facility] Diastolic blood 2022-07-24 10:31:00 74 mm[Hg] Unive rsity of pressure [place] [facility] Heart rate 2022-07-24 10:31:00 97 /min Universi ty of [place] [facility] Body temperature 2022-07-24 10:31:00 36.83 Devika Univ ersity of [place] [facility] Respiratory rate 2022-07-24 10:31:00 17 /min Univ ersity of [place] [facility] Body height 2022-07-24 10:31:00 170.2 cm Universi ty of [place] [facility] Body weight 2022-07-24 10:31:00 72.576 kg Universi ty of [place] [facility] BMI 2022-07-24 10:31:00 25.06 kg/m2 Universi ty of [place] [facility] Oxygen saturation in 2022-07-24 10:31:00 97 /min University of Arterial blood by [facility] Pulse oximetry Branch Systolic blood 2021-05-08 13:37:00 133 mm[Hg] Univer sity of pressure [place] [facility] Diastolic blood 2021-05-08 13:37:00 87 mm[Hg] Unive rsity of pressure [place] [facility] Heart rate 2021-05-08 13:37:00 105 /min Universi ty of [place] [facility] Body temperature 2021-05-08 13:37:00 36.5 Devika Univ ersity of [place] [facility] Respiratory rate 2021-05-08 13:37:00 18 /min Univ ersity of [place] [facility] Body weight 2021-05-08 13:37:00 88.451 kg Universi ty of [place] [facility] BMI 2021-05-08 13:37:00 30.54 kg/m2 Universi ty of [place] [facility] Oxygen saturation in 2021-05-08 13:37:00 97 /min University of Arterial blood by [facility] Pulse oximetry Branch Systolic blood 2020-05-15 16:43:00 95 mm[Hg] Univer sity of pressure [place] [facility] Diastolic blood 2020-05-15 16:43:00 47 mm[Hg] Unive rsity of pressure [place] [facility] Heart rate 2020-05-15 16:43:00 45 /min Universi ty of [place] [facility] Body temperature 2020-05-15 16:43:00 35.61 Devika Univ ersity of [place] [facility] Respiratory rate 2020-05-15 16:43:00 18 /min [facility] Oxygen saturation in 2020-05-15 16:43:00 95 /min University Arterial blood by [facility] Pulse oximetry Branch BMI 2020-05-12 10:00:00 30.54 kg/m2 [facility] Body height 2020-05-12 10:00:00 170.2 cm [facility] Body weight 2020-05-12 10:00:00 88.451 kg [facility] Procedures Procedure Date / Time Performing Clinician Source Performed XR FOOT 3+ VW LEFT 2022-07-24 11:38:[address] [facility] NOTICE OF PRIVACY 2022-07-24 10:19:43 Doctor Unassigned, No [facility] PRACTICES Name Medical Branch CONSENT/REFUSAL FOR 2022-07-24 10:18:54 Doctor Unassigned, No [facility] DIAGNOSIS AND TREATMENT Name Medical Branch ACTIVATED PARTIAL 2020-05-15 06:40:00 Holden Castillo [facility] COMP. METABOLIC PANEL 2020-05-15 05:29:00 Radha [facility] ([id number]) Medical Branch VANCOMYCIN TROUGH 2020-05-15 05:29:00 Radha [facility] CBC WITH DIFF 2020-05-15 05:29:00 Diaz [facility] TOXOPLASMA IGG ANTIBODY 2020-05-15 05:29:00 Radha [facility] HBC ANTIBODY (IGM & IGG) 2020-05-15 05:29:00 Zoey Garcia [facility] HAV ANTIBODY (IGG AND 2020-05-15 05:29:00 Radha [facility] IGM) [facility] GALV ONLY - SYPHILIS 2020-05-15 05:29:00 Radha [facility] IGG/IGM [facility] URINALYSIS 2020-05-15 01:34:[address] [facility] GC & CHLAMYDIA AMPLIFIED 2020-05-15 01:34:00 Zoey Garcia [facility] ASSAY [facility] ACTIVATED PARTIAL 2020-05-14 21:55:00 [place], [facility] CD4 SUBSET ASSAY 2020-05-14 15:15:00 [facility] 2020-05-14 15:15:00 Jonathan [facility] BASIC METABOLIC PANEL 2020-05-14 09:56:00 Diaz [facility] (NA, K, CL, CO2, Medical Branch GLUCOSE, BUN, CREATININE, CA) LIPID PANEL 2020-05-14 09:56:00 Radha [facility] ([id number])(TOTAL Medical Branch CHOLESTEROL, TRIGLYCERIDES, HDL) CBC WITH DIFF 2020-05-14 09:56:00 [facility] 2020-05-14 09:56[facility] HEPATITIS B SURFACE 2020-05-14 09:56:00 Radha [facility] ANTIGEN [facility] HCV ANTIBODY 2020-05-14 09:56:[address] [facility] HEPATITIS B CORE 2020-05-14 09:56:00 [facility] ANTIBODY IGM [facility] Branch VANCOMYCIN TROUGH 2020-05-14 01:18:00 Jonathan [facility] ACTIVATED PARTIAL 2020-05-14 01:18:00 Jonathan [facility] ASPIRATE OR ABSCESS 2020-05-13 21:33:00 Lisa Mckeon [facility] CULTURE(AEROBIC/ANAEROBI [facility] C) AFB CULTURE 2020-05-13 21:33:00 Lisa Mckeon [facility] FUNGUS (ROUTINE) CULTURE 2020-05-13 21:33:00 Lisa Mckeon [facility] INCISION AND DRAINAGE 2020-05-13 20:47:00 Lisa Mckeon [facility] UPPER EXTREMITY [facility] ACTIVATED PARTIAL 2020-05-13 14:08:00 Jonathan [facility] BASIC METABOLIC PANEL 2020-05-13 06:38:00 Diaz [facility] (NA, K, CL, CO2, Medical Branch GLUCOSE, BUN, CREATININE, CA) CBC WITH DIFF 2020-05-13 06:38:00 Diaz, [facility] o f [facility] ACTIVATED PARTIAL 2020-05-13 06:38:00 Holden Castillo [facility] ACTIVATED PARTIAL 2020-05-12 23:21:00 Holden Castillo [facility] ACTIVATED PARTIAL 2020-05-12 11:35:00 Jonathan [facility] GALV/CLC ONLY - URINE 2020-05-12 11:05:00 Holden Castillo [facility] DRUG (IMMUNOASSAY) - Medical Bra [facility] COMPREHENSIVE DRUG SCREEN BLOOD CULTURE SCREEN 2020-05-12 11:04:00 Holden [facility]illo [facility] HIV 1/2 AG-AB WITH 2020-05-12 11:03:00 Holden Castillo [facility] REFLEX [facility] HIV 1/2 AB SUPPLEMENTAL 2020-05-12 11:03:00 Holden Castillo [facility] BLOOD CULTURE SCREEN 2020-05-12 10:52:00 [facility] E[facility]-12 LEAD 2020-05-12 10:33:31 Alli Davenport [facility] CT HUMERUS LEFT W 2020-05-12 08:37:26 Kylie Burr [facility] PROTHROMBIN TIME / INR 2020-05-12 06:44:00 Kylie Burr [facility] ACTIVATED PARTIAL 2020-05-12 06:44:00 Kylie Burr [facility] C-REACTIVE PROTEIN 2020-05-12 04:03:00 Kylie Burr [facility] COMP. METABOLIC PANEL 2020-05-12 04:03:00 Kylie Burr [facility] ([id number]) [facility] SEDIMENTATION RATE 2020-05-12 04:03:00 Kylie Burr [facility] CBC WITH DIFF 2020-05-12 04:03:00 Kylie Burr [facility] HEPATITIS B SURFACE 2020-05-12 04:03:00 Sharadgurjit Holden [facility] ANTIBODY [facility] HCV ANTIBODY 2020-05-12 04:03:00 Holden Castillo [facility] HBC ANTIBODY (IGM & IGG) 2020-05-12 04:03:00 Sharadgurjit Holden [facility] COVID-19 (ID NOW RAPID 2020-05-12 04:03:00 Kylie Burr [facility] TESTING) Medical Branch US UPPER EXTREMITY VEIN 2020-05-12 03:49:17 Kylie Burr [facility] WITH COMPRESSION LEFT Medical Br anch (ONLY FOR RULE OUT DVT) XR ELBOW <3 VW LEFT 2020-05-12 02:36:17 Kylie Burr [facility] Encounters Start End Encounter Admission Attending Care Care Encounter Source Date/Time Date/Time Type Type Clinicians Facility Department ID 2022-07-24 2022-07-24 Emergency X [facility] ERT [id number] Univers 05:35:00 07:00[facility]00 [facility] 2022-07-24 [facility] [id number] Univers 05:35:00 07:00:00 , Thais LOPEZ [id number] i ty of Ashley AYDEN [id number] [facility] [id number] [address] 2021-05-08 2021-05-08 Emergency [facility] [id number] Univers 08:30:00 09:30:00 Ana Luisa Lopez [id number] ity [facility] [id number] [facility] [id number] [address] 2021-05-08 2021-05-08 Emergency X [facility] ERT [id number] Univers 08:30:00 08:30:00 ANA LUISA [facility] 2020-11-01 2020-11-01 Telephone ZHANG Lawson [id number] Univers 00:00:00 00:00:00 Nechelle Y HEALTH [id number] ity of [place] [id number] [place] [id number] [address] 2020-10-31 2020-10-31 Case Zainab, [facility] [id number] Univers 00:00:00 00:00:00 Management Ck L Y HEALTH [id number] ity of CL[place] [id number] [place] [id number] [address] 2020-07-31 2020-07-31 Case Contreras, [facility] [id number] Univers 00:00:00 00:00:00 Management Brittany L Y HEALTH [id number] ity of [place] [id number] [place] [id number] [address] 2020-07-18 2020-07-18 Case Matias Tay, [facility] [id number] Univers 00:00:00 00:00:00 Management Jessica R Y HEALTH [id number] ity of [place] 4[place]2.7.2.686 [place] [id number] [address] 2020-07-10 2020-07-10 Case Contreras, [facility] [id number] Univers 00:00:00 00:00:00 Management Brittany L Y HEALTH [id number] ity of CL[place]ICS 4.2.7.2.686 [place] [id number] [address] 2020-07-09 2020-07-09 [facility] [id number] Univers 00:00:00 00:00:00 Management Brittany L Y HEALTH [id number] ity of CL[place] [id number] [place] [id number] [address] 2020-05-18 2020-05-18 Jigar Contreras, [facility] [id number] Univers 00:00:00 00:00:00 Management Brittany L Y HEALTH [id number] ity of CLINICS [id number] [place] [id number] [facility] 089 Branch 2020-05-17 2020-05-17 Jigar Contreras [facility] [id number] Univers 00:00:00 00:00:00 Management Brittany L Y HEALTH [id number] ity of CLINICS 4.2.7.2.686 [place] [id number] [place] [address] Branch 2020-05-16 2020-05-16 Telephone Ethel [facility] [id number] Univers 00:00:00 00:00:00 Alli Terrazas [facility] [id number] [facility] 4.2.7.2.[place] [id number] [address] [facility] 2020-05-16 2020-05-16 Jigar Contreras, ZENAIT [id number] Univers 00:00:00 00:00:00 Management Brittany L Y HEALTH [id number] ity of CL[place]ICS 4.2.7.2.686 [place] [id number] [address] 2020-05-11 2020-05-15 Hospital Kylie Burr 1.2.8 40.114 [id number] Univers 20:02:30 16:26:00 Encounter Alli Davenport Kaycee 350.1.1 3.10 ity of Hospital 4.2.7.2.686 Toño as [id number] [place] [address] [address] 2020-05-15 2020-05-15 Telephone Zainab [facility] [id number] Univers 00:00:00 00:00:00 Ck L Y HEALTH 350.1.13.10 ity of CLIN[id number] [address] 2020-05-11 2020-05-11 Emergency X AMINAH [facility] ERT [id number] Univers 20:02:30 20:02:30 KYLIE pillai [facility] Results Test Description Test Time Test Comments Results Result Comments Source GC & CHLAMYDIA AMPLIFIED ASSAY 2020-05-15 18:26:00 Test Item Value Reference Range Interpretation Comme nts C. trachomatis Nucleic Acid (test code = 29217-4) Negative Nega tive N. gonorrhoeae Nucleic Acid (test code = 89940-5) Negative Nega tive Lab Interpretation (test code = 83637-5) Normal [facility] SUBSET [id number] 17:05:00 Test Item Value Reference Range Interpretation Comments CD4 % (test code = 23 % 31-60 L 8123-2) CD4 Absolute (test code See_Comment L [Au tomated message] = 47465-4) The system [employer] generated this result transmitted ref erence range: 410-1,59 0 Cells/?L. The reference range was not used to int erpret this result as normal/abnormal . Lab Interpretation (test Abnormal code = 90582-3) [facility]GAL ONLY - SYPHILIS [id number] 14:50:00 Test Item Value Reference Range Interpretation Comments Syphilis IgG/IgM (test Non-reactive Non-reactive code = 35948-1) MORIS (test code = MORIS) Non-reactive - No serologic evidence of T. pallidum infection. Cannot exclude incubating or early syphilis. Submit a second specimen in 2-4 weeks if syphilis is clinically suspected. Equivocal - Further testing to follow. Reactive - Further testing to follow. Lab Interpretation (test Normal code = 52688-4) [facility]lineTOXOPLASMA IGG [id number] 14:49:00 Test Item Value Reference Range Interpretation Comments TOXO IGG (test code Negative = 1612282755) MORIS (test code = Positive - Indicates MORIS) current or past T. gondii infection.Negative - No serologic evidence of T. gondii infection. Cannot exclude acute T. gondii infection. Equivocal - A second sample should be sent. [facility]line[facility] ANTIBODY (IGG AND IGM)2020-05-15 10:04:00 Test Item Value Reference Range Interpretation Comments HAV Total (test code Negative = 8026419649) HAVT Semi-Quantitative (test code = 7862116661) MORIS (test code = It is recommended that a MORIS) new specimen be collected within 2-4 weeks and retested. ?If any questions, please contact the Clinical Chemistry Director engagement liaison at [phone]. ? [facility] WITH [id number] 08:37:00 Test Item Value Reference Range Interpretation [...] RDW-SD (test code = 42.5 fL 38.5-51.6 04316-0) RDW-CV (test code = 12.9 % 12.1-15.4 788-0) PLT (test code = See_Comment [Automated 777-3) message] The sy stem which generated this result transmitted reference range : 150 - 328 10*3/ ?L. The reference r kiran was not used to interpret this result as normal/abnormal . MPV (test code = 10.9 fL 9.8-13 11796-9) NRBC/100 WBC (test See_Comment [Automat ed code = 8320526737) message] The system which generated this result transmitted reference range : 0.0 - 10.0 /100 WBCs. The refer ence range was not u sed to interpret th is result as normal/abnormal . NRBC x10^3 (test code <0.01 See_Comment [Auto mated = 8130138238) message] The s ystem which generated this result transmitted reference range : 10*3/?L. The reference range was not used to interpret this result as normal/abnormal . GRAN MAT (NEUT) % 57.9 % (test code = 770-8) IMM GRAN % (test code 1.50 % = 6737354483) LYMPH % (test code = 33.1 % 736-9) MONO % (test code = 6.4 % 5905-5) EOS % (test code = 0.6 % 713-8) BASO % (test code = 0.5 % 706-2) GRAN MAT x10^3(ANC) 5.57 10*3/uL 1.99-6.95 (test code = 0899520495) IMM GRAN x10^3 (test 0.14 10*3/uL 0-0.06 H code = 9098488697) LYMPH x10^3 (test code 3.19 10*3/uL 1.09-3.23 = 731-0) MONO x10^3 (test code 0.62 10*3/uL 0.36-1.02 = 742-7) EOS x10^3 (test code = 0.06 10*3/uL 0.06-0.53 711-2) BASO x10^3 (test code 0.05 10*3/uL 0.01-0.09 = 704-7) Lab Interpretation Abnormal (test code = 18678-1) [facility] ShorelineVanalta view hospitalycin Trough Level - Draw immediately prior to the 4TH dose, but, no more than 60 minutes before the 4TH dose. 2020-05-15 07:21:00 Test Item Value Reference Range Interpretation Comments VANCO TROUGH (test code 13.7 ug/mL 10-20 = 8834160752) MORIS (test code = MORIS) Toxic Range: ?>20 ug/mL 15-20 ug/mL is recommended for severe infection or when Vancomycin MARIANN is greater than or equal to 2. Lab Interpretation (test Normal code = 92854-6) [facility]lineHB ANTIBODY (IGM & IGG)2020-05-15 07:14:00 Test Item Value Reference Range Interpretation Comments HBC (test code = 5610762381) Negative HBC Semi-Quantitative (test code = 8257068774) [facility]. METABOLIC PANEL (84001)2020-05-15 07:01:00 Test Item Value Reference Range Interpretation Comments NA (test code = 139 mmol/L 135-145 8466004976) K (test code = 3.3 mmol/L 3.5-5 L 9537546555) CL (test code = 105 mmol/L 98-108 4901914010) CO2 TOTAL (test code = 27 mmol/L 23-31 1087403694) AGAP (test code = 2-16 1864454767) BUN (test code = 10 mg/dL 7-23 1911004643) GLUCOSE (test code = 92 mg/dL 70-110 4403342113) CREATININE (test code = 0.83 mg/dL 0.6-1.25 6115703359) TOTAL BILI (test code = <0.1 0.1-1.1 L 2801901482) CALCIUM (test code = 9.2 mg/dL 8.6-10.6 3633742499) T PROTEIN (test code = 6.6 g/dL 6.3-8.2 3885540136) ALBUMIN (test code = 3.7 g/dL 3.5-5 4192847056) ALK PHOS (test code = 70 U/L 34-122 0927539290) ALTv (test code = 101 U/L 5-50 H 1742-6) AST(SGOT) (test code = 126 U/L 13-40 H 7715754995) eGFR Calculation mL/min/1.73m2 (Non-) (test code = 1845180720) eGFR Calculation mL/min/1.73m2 () (test code = 6765131783) MORIS (test code = MORIS) Association of [...] tests). Lab Interpretation Abnormal (test code = 57867-0) [facility]lineaPTT (for use with Heparin Practice Guideline). Note: Draw and Send all Lab STAT.2020-05-15 06:58:00 Test Item Value Reference Range Interpretation Comments APTT Patient (test code See_Comment H [Au tomated message] = 3173-2) The system Raise5 generated this result transmitted ref erence range: 26 - 36 Seconds. The reference range was not used to int erpret this result as normal/abnormal . Lab Interpretation (test Abnormal code = 48357-4) [facility]lineURINALYSIS2020-08-04 03:29:00 Test Item Value Reference Range Interpretation Comments APPEARANCE (test code = Clear Clear 3943212690) COLOR (test code = Straw Yellow A 6755045163) PH (test code = 4.8-8.0 6829415110) SP GRAVITY (test code = 1.003-1.030 9717866905) GLU U QUAL (test code = Normal Normal 5461569822) BLOOD (test code = Negative Negative 3703270460) KETONES (test code = Negative Negative 0157680162) PROTEIN (test code = Negative Negative 2887-8) UROBILIN (test code = Normal Normal 5234224079) BILIRUBIN (test code = Negative Negative 8160027699) NITRITE (test code = Negative Negative 1681431702) LEUK TREY (test code = Negative Negative 5996563780) RBC/HPF (test code = See_Comment [Autom ated message] 0723318936) The system Raise5 generated this result transmitted ref erence range: 0 - 3 HP F. The reference range was not used to int erpret this result as normal/abnormal . WBC/HPF (test code = <1 See_Comment [Autom ated message] 1103300324) The system Raise[employer] generated this result transmitted ref erence range: 0 - 5 HP F. The reference range was not used to int erpret this result as normal/abnormal . BACTERIA (test code = Negative Negative 1578314014) MUCOUS (test code = Slight Negative LPF A 4321644629) Lab Interpretation (test Abnormal code = 84732-6) [facility] ShorelineHCV [id number] 02:21:00 Test Item Value Reference Range Interpretation Comments HCV Ab (test code = 04329-5) Negative HCV Semi-Quantitative (test code = 33528-5) [facility] B CORE ANTIBODY [id number] 01:54:00 Test Item Value Reference Range Interpretation Comments HBCM Negative Semi-Quantitative (test code = 69198-0) MORIS (test code = Biotin has been reported MORIS) to cause a negative bias, interpret results relative to patient's use of biotin. [facility]HEEM[facility] SURFACE [id number] 01:46:00 Test Item Value Reference Range Interpretation Comments HBsAg Semi-Quantitative (test code = Negative Negative 5195-3) [facility] ShorelineGLYCOSYLATED HEMOGLOBIN (A1C)2020-05-15 01:41:00 Test Item Value Reference Range Interpretation Comments HGB A1C (test code = 4548-4) 5.5 % 4-6 Lab Interpretation (test code = Normal 50010-2) [facility] ShorelineLIPID PANEL (62013)(TOTAL CHOLESTEROL, TRIGLYCERIDES, HDL)2020-05-15 01:09:00 Test Item Value Reference Range Interpretation Comments CHOL (test code = 192 mg/dL 120-200 4227382131) HDL (test code = 44 mg/dL >40 2412214880) HDLC RATIO (test code = See_Comment [Au tomated message] 8217040879) The system Raise5 generated this result transmit [place] reference range : <=5.0. The refe rence range was not u sed to interpret th is result as normal/abnormal . TRIG (test code = 246 mg/dL 30-170 H 6443049604) LDL CHOL (test code = 99 mg/dL See_Comment [Auto mated message] 01736-6) The system Raise5 generated this result transmit [place] reference range : <=160. The refe rence range was not u sed to interpret th is result as normal/abnormal . VLDL (test code = 49 mg/dL 5-60 3448646906) Lab Interpretation (test Abnormal code = 87941-2) [facility] (for use with Heparin Practice Guideline). Note: Draw and Send all Lab STAT.2020-05-14 22:39:00 Test Item Value Reference Range Interpretation Comments APTT Patient (test code >150 See_Comment HH [Au tomated message] = 3173-2) The system Raise5 generated this result transmitted ref erence range: 26 - 36 Seconds. The reference range was not used to int erpret this result as normal/abnormal . Lab Interpretation (test Abnormal code = 91632-6) [facility] (for use with Heparin Practice Guideline). Note: Draw and Send all Lab STAT.2020-05-14 15:52:00 Test Item Value Reference Range Interpretation Comments APTT Patient (test code = See_Comment [ Automated message] 3173-2) The system Raise5 generated this result transmitted ref erence range: 26 - 36 Seconds. The re ference range was not u sed to interpret this result as normal/abnor mal. Lab Interpretation (test Normal code = 87846-3) [facility] METABOLIC PANEL (NA, K, CL, CO2, GLUCOSE, BUN, CREATININE, CA)2020-05-14 10:33:00 Test Item Value Reference Range Interpretation Comments NA (test code = 136 mmol/L 135-145 9118286373) K (test code = 4.1 mmol/L 3.5-5 3527174887) CL (test code = 106 mmol/L 98-108 7888864084) CO2 TOTAL (test code = 25 mmol/L 23-31 0423203904) AGAP (test code = 2-16 6818675230) BUN (test code = 13 mg/dL 7-23 0383377518) GLUCOSE (test code = 156 mg/dL 70-110 H 7772400920) CREATININE (test code = 0.67 mg/dL 0.6-1.25 0182006178) CALCIUM (test code = 9.4 mg/dL 8.6-10.6 0246730019) eGFR Calculation mL/min/1.73m2 (Non-) (test code = 4883909966) eGFR Calculation mL/min/1.73m2 () (test code = 4653081694) MORIS (test code = MORIS) Association of [...] tests). Lab Interpretation Abnormal (test code = 53506-6) [facility] WITH [id number] 10:11:00 Test Item Value Reference Range Interpretation Comments WBC (test code = See_Comment [Automated 0035-2) message] The sy stem which generated this result transmitted reference range : 4.20 - 10.70 10*3/?L. The reference range was not used to interpret this result as normal/abnormal . RBC (test code = See_Comment L [Automated 209-8) message] The sy stem which generated this [...] RDW-SD (test code = 41.1 fL 38.5-51.6 29229-2) RDW-CV (test code = 12.5 % 12.1-15.4 788-0) PLT (test code = See_Comment [Automated 777-3) message] The sy stem which generated this result transmitted reference range : 150 - 328 10*3/ ?L. The reference r kiran was not used to interpret this result as normal/abnormal . MPV (test code = 11.4 fL 9.8-13 94782-5) NRBC/100 WBC (test See_Comment [Automat ed code = 3884827644) message] The system which generated this result transmitted reference range : 0.0 - 10.0 /100 WBCs. The refer ence range was not u sed to interpret th is result as normal/abnormal . NRBC x10^3 (test code <0.01 See_Comment [Auto mated = 0661911293) message] The s ystem which generated this result transmitted reference range : 10*3/?L. The reference range was not used to interpret this result as normal/abnormal . GRAN MAT (NEUT) % 79.9 % (test code = 770-8) IMM GRAN % (test code 1.00 % = 6416524881) LYMPH % (test code = 15.4 % 736-9) MONO % (test code = 3.6 % 5905-5) EOS % (test code = 0.0 % 713-8) BASO % (test code = 0.1 % 706-2) GRAN MAT x10^3(ANC) 7.40 10*3/uL 1.99-6.95 H (test code = 8785914833) IMM GRAN x10^3 (test 0.09 10*3/uL 0-0.06 H code = 2360395985) LYMPH x10^3 (test code 1.43 10*3/uL 1.09-3.23 = 731-0) MONO x10^3 (test code 0.33 10*3/uL 0.36-1.02 L = 742-7) EOS x10^3 (test code = <0.03 0.06-0.53 L 711-2) BASO x10^3 (test code <0.03 0.01-0.09 = 704-7) Lab Interpretation Abnormal (test code = 60934-8) [facility]lineVancomycin Trough Level - Draw within 30 minutes prior to 4TH dose.2020-05-14 02:52:00 Test Item Value Reference Range Interpretation Comments VANCO TROUGH (test code 5.9 ug/mL 10-20 L = 4512293194) MORIS (test code = MORIS) Toxic Range: ?>20 ug/mL 15-20 ug/mL is recommended for severe infection or when Vancomycin MARIANN is greater than or equal to 2. Lab Interpretation (test Abnormal code = 42666-5) [facility] (for use with Heparin Practice Guideline). Note: Draw and Send all Lab STAT.2020-05-14 01:34:00 Test Item Value Reference Range Interpretation Comments APTT Patient (test code See_Comment H [Au tomated message] = 3173-2) The system Raise5 generated this result transmitted ref erence range: 26 - 36 Seconds. The reference range was not used to int erpret this result as normal/abnormal . Lab Interpretation (test Abnormal code = 90458-1) [facility] 1/2 AG-AB WITH [id number] 16:32:00 Test Item Value Reference Range Interpretation Comments HIV Semi-quantitative (test code = Reactive Negative A 76684-7) Lab Interpretation (test code = Abnormal 99233-9) [facility] 1/2 AB SUPPLEMENTAL [id number] 16:32:00 Test Item Value Reference Range Interpretation Comments HIV Supplemental Positive Confirmatory Testing (test code = 5096592294) HIV-1 Ab Confirmation Positive (test code = 9043306200) HIV-2 Ab Confirmation Negative (test code = 9307981486) MORIS (test code = MORIS) Patient is confirmed to have HIV-1 infection. [facility] (for use with Heparin Practice Guideline). Note: [...] mal. Lab Interpretation (test Normal code = 11408-8) [facility] WITH [id number] 08:22:00 Test Item Value Reference Range Interpretation Comments WBC (test code = See_Comment [Automated 2786-2) message] The sy stem which generated this result transmitted reference range : 4.20 - 10.70 10*3/?L. The reference range was not used to interpret this result as normal/abnormal . RBC (test code = See_Comment L [Automated 409-8) message] The sy stem which generated this [...] RDW-SD (test code = 44.5 fL 38.5-51.6 24018-2) RDW-CV (test code = 13.2 % 12.1-15.4 788-0) PLT (test code = See_Comment [Automated 777-3) message] The sy stem which generated this result transmitted reference range : 150 - 328 10*3/ ?L. The reference r kiran was not used to interpret this result as normal/abnormal . MPV (test code = 11.3 fL 9.8-13 12295-9) NRBC/100 WBC (test See_Comment [Automat ed code = 3931643468) message] The system which generated this result transmitted reference range : 0.0 - 10.0 /100 WBCs. The refer ence range was not u sed to interpret th is result as normal/abnormal . NRBC x10^3 (test code <0.01 See_Comment [Auto mated = 5785268454) message] The s ystem which generated this result transmitted reference range : 10*3/?L. The reference range was not used to interpret this result as normal/abnormal . GRAN MAT (NEUT) % 47.7 % (test code = 770-8) IMM GRAN % (test code 0.60 % = 0510709803) LYMPH % (test code = 39.4 % 736-9) MONO % (test code = 9.4 % 5905-5) EOS % (test code = 2.1 % 713-8) BASO % (test code = 0.8 % 706-2) GRAN MAT x10^3(ANC) 2.55 10*3/uL 1.99-6.95 (test code = 9866172088) IMM GRAN x10^3 (test 0.03 10*3/uL 0-0.06 code = 3629049809) LYMPH x10^3 (test code 2.10 10*3/uL 1.09-3.23 = 731-0) MONO x10^3 (test code 0.50 10*3/uL 0.36-1.02 = 742-7) EOS x10^3 (test code = 0.11 10*3/uL 0.06-0.53 711-2) BASO x10^3 (test code 0.04 10*3/uL 0.01-0.09 = 704-7) Lab Interpretation Abnormal (test code = 52293-7) [facility] METABOLIC PANEL (NA, K, CL, CO2, GLUCOSE, BUN, CREATININE, CA)2020-05-13 07:17:00 Test Item Value Reference Range Interpretation Comments NA (test code = 138 mmol/L 135-145 7597232983) K (test code = 3.6 mmol/L 3.5-5 5978742683) CL (test code = 105 mmol/L 98-108 4501067738) CO2 TOTAL (test code = 27 mmol/L 23-31 2406911413) AGAP (test code = 2-16 2501799543) BUN (test code = 10 mg/dL 7-23 4543942053) GLUCOSE (test code = 115 mg/dL 70-110 H 5259589984) CREATININE (test code = 0.82 mg/dL 0.6-1.25 7905886518) CALCIUM (test code = 8.9 mg/dL 8.6-10.6 2236892065) eGFR Calculation mL/min/1.73m2 (Non-) (test code = 5151690998) eGFR Calculation mL/min/1.73m2 () (test code = 8740926465) MORIS (test code = MORIS) Association of [...] tests). Lab Interpretation Abnormal (test code = 32654-8) [facility] (for use with Heparin Practice Guideline). Note: Draw and Send all Lab STAT.2020-05-13 07:00:00 Test Item Value Reference Range Interpretation Comments APTT Patient (test code See_Comment H [Au tomated message] = 3173-2) The system Raise5 generated this result transmitted ref erence range: 26 - 36 Seconds. The reference range was not used to int erpret this result as normal/abnormal . Lab Interpretation (test Abnormal code = 02398-2) [facility] UPPER EXTREMITY VEIN WITH COMPRESSION LEFT (ONLY [...] PM CDTSOFT TISSUE ULTRASOUND HISTORY: Swollen, redness, andpain to left distal arm/elbow after selfinjected Math about 6 days ago, worsens COMPARISON: No priorstudies are available for comparison.TECHNIQUE: Lacy scale and Doppler interrogation of antecubital soft tissueand the right upper extremity venous system was performed.FINDINGS: Right Upper Extremity Venous System:Internal jugular vein: Patent without thrombus.Subclavian vein: Patent without thrombus. Pulsatility is indirect evidenceof central patency.Axillary vein: Not [...] is recommended. Preliminary Report Dictated by Resident: Lyndon Valverde, Abad Sanchez MD., have reviewed this study and agree with the abovereport.[facility] (for use with Heparin Practice Guideline). Note: Draw and Send all Lab STAT.2020-05-12 23:38:00 Test Item Value Reference Range Interpretation Comments APTT Patient (test code See_Comment H [Au tomated message] = 3173-2) The system Raise5 generated this result transmitted ref erence range: 26 - 36 Seconds. The reference range was not used to int erpret this result as normal/abnormal . Lab Interpretation (test Abnormal code = 05106-9) [facility]lineC-REACTIVE [id number] 14:49:00 Test Item Value Reference Range Interpretation Comments CRP (test code = 1247867887) 1.1 mg/dL <0.8 H Lab Interpretation (test code = Abnormal 25618-6) [facility]lineCT HUMERUS LEFT W [id number] 14:27:07 Cellulitic and phlegmonous changes surrounding the [...] reviewed this study and agree with the abovereport.[facility]lineGALV/CLC ONLY - URINE DRUG (IMMUNOASSAY) - COMPREHENSIVE DRUG [id number] 12:24:00 Test Item Value Reference Range Interpretation Comments AMPHET (test code = Negative Negative 2534890611) DEISY U (test code = Negative Negative 3267756166) BENZO U (test code = Negative Negative 4920587807) Cocaine Metabolite (test Negative Negative code = 7943506255) METHADONE (test code = Negative Negative 1433621981) OPIATES (test code = Presumptive Positive Negative A 7092931286) PCP (test code = Negative Negative 4334576532) THC (test code = Negative Negative 5544644625) MORIS (test code = MORIS) Urine Drug [...] testing). Lab Interpretation (test Abnormal code = 61912-3) [facility]lineaPTT2020-08-01 12:00:00 Test Item Value Reference Range Interpretation Comments APTT Patient (test code = See_Comment [ Automated message] 3173-2) The system [employer]ise[employer] generated this result transmitted ref erence range: 26 - 36 Seconds. The re ference range was not u sed to interpret this result as normal/abnor mal. Lab Interpretation (test Normal code = 26154-0) [facility] ShorelineXR ELBOW <3 VW [id number] 10:32:43 Soft tissue findings suggestive of cellulitis. [...] seen. The joint spaces and alignment aremaintained. Vtmb, Radiant Results Inft User - 05/12/2020 5:33 [...] reviewed this study and agree with the abovereport.[facility] ShorelineHCV [id number] 09:12:00 Test Item Value Reference Range Interpretation Comments HCV Ab (test code = 19159-9) Negative HCV Semi-Quantitative (test code = 73932-0) [facility] ShorelineHEPATITIS B SURFACE [id number] 09:03:00 Test Item Value Reference Range Interpretation Comments HBsAB (test code = Positive 4167069646) HBsAb mIU/mL Semi-Quantitative (test code = 5235151968) MORIS (test code = Interpretation: MORIS) ?Hepatitis B Surface Antibody ? Negative - Patient is considered to be not immune to infection with HBV. ? ? Positive - Anti-HBs detected at greater than or equal to 12 mIU/mL. ?Patient is considered to be immune to infection with HBV. ? [facility] ShorelineHBC ANTIBODY (IGM & IGG)2020-05-12 09:03:00 Test Item Value Reference Range Interpretation Comments HBC (test code = 1235619640) Negative HBC Semi-Quantitative (test code = 3544485938) [facility] ShorelinePROTHROMBIN TIME / [id number] 07:00:00 Test Item Value Reference Range Interpretation Comments PROTIME PATIENT (test See_Comment [Auto mated message] code = 5964-2) The system [employer] ich generated this result transmitted ref erence range: 10.1 - 1 2.6 Seconds. The re ference range was not u sed to interpret this result as normal/abnor mal. INR (test code = 6301-6) Nor mal INR <1.1; Warfarin Therap eutic range 2.0 to 3. 0 or 2.5 to 3.5, dep ending upon the indica tions. Lab Interpretation (test Normal code = 24177-8) [facility]lineaPTT2020-08-01 07:00:00 Test Item Value Reference Range Interpretation Comments APTT Patient (test code = See_Comment [ Automated message] 3173-2) The system [employer] h generated this result transmitted ref erence range: 26 - 36 Seconds. The re ference range was not u sed to interpret this result as normal/abnor mal. Lab Interpretation (test Normal code = 67118-8) [facility] ShorelineSEDIMENTATION [id number] 05:08:00 Test Item Value Reference Range Interpretation Comments ESR (test code = See_Comment H [Automated message] 0540833484) The system [employer] h generated this result transmitted ref erence range: 0 - 10 m m/HR. The reference r kiran was not used to interpret this result as normal/abnor mal. Lab Interpretation (test Abnormal code = 58586-8) [facility] WITH [id number] 04:52:00 Test Item Value Reference Range Interpretation Comments WBC (test code = See_Comment [Automated 1190-2) message] The sy stem which generated this [...] RDW-SD (test code = 43.5 fL 38.5-51.6 38690-6) RDW-CV (test code = 13.2 % 12.1-15.4 788-0) PLT (test code = See_Comment H [Automated 777-3) message] The sy stem which generated this result transmitted reference range : 150 - 328 10*3/ ?L. The reference r kiran was not used to interpret this result as normal/abnormal . MPV (test code = 11.1 fL 9.8-13 44812-6) NRBC/100 WBC (test See_Comment [Automat ed code = 2345007785) message] The system which generated this result transmitted reference range : 0.0 - 10.0 /100 WBCs. The refer ence range was not u sed to interpret th is result as normal/abnormal . NRBC x10^3 (test code <0.01 See_Comment [Auto mated = 2996124557) message] The s ystem which generated this result transmitted reference range : 10*3/?L. The reference range was not used to interpret this result as normal/abnormal . GRAN MAT (NEUT) % 59.8 % (test code = 770-8) IMM GRAN % (test code 0.10 % = 7544261740) LYMPH % (test code = 29.2 % 736-9) MONO % (test code = 9.3 % 5905-5) EOS % (test code = 1.0 % 713-8) BASO % (test code = 0.6 % 706-2) GRAN MAT x10^3(ANC) 4.04 10*3/uL 1.99-6.95 (test code = 7121219279) IMM GRAN x10^3 (test <0.03 0-0.06 code = 4946168521) LYMPH x10^3 (test code 1.98 10*3/uL 1.09-3.23 = 731-0) MONO x10^3 (test code 0.63 10*3/uL 0.36-1.02 = 742-7) EOS x10^3 (test code = 0.07 10*3/uL 0.06-0.53 711-2) BASO x10^3 (test code 0.04 10*3/uL 0.01-0.09 = 704-7) REACT LYMPHS (test Rare code = 3947480396) Lab Interpretation Abnormal (test code = 72910-8) [facility]APID TESTING[facility]2020-05-12 04:35:00 Test Item Value Reference Range Interpretation Comments SARS-CoV-2 Rapid ID NOW Not Detected Not Detected (test code = 46039-5) MORIS (test code = MORIS) ID NOW COVID-19 Assay is an isothermal nucleic acid amplification test intended for the qualitative detection of nucleic acid from SARS-CoV-2 viral RNA in nasopharyngeal (VIDEO LIBRARY ASSISTANT) specimens. It is used under Emergency Use [...] indicated. Lab Interpretation Normal (test code = 06327-5) [facility]. METABOLIC PANEL (73409)2020-05-12 04:30:00 Test Item Value Reference Range Interpretation Comments NA (test code = 139 mmol/L 135-145 4867503039) K (test code = 4.3 mmol/L 3.5-5 2716593166) CL (test code = 107 mmol/L 98-108 0574237421) CO2 TOTAL (test code = 27 mmol/L 23-31 6393564467) AGAP (test code = 2-16 9013277201) BUN (test code = 8 mg/dL 7-23 2665162948) GLUCOSE (test code = 90 mg/dL 70-110 2898807994) CREATININE (test code 0.62 mg/dL 0.6-1.25 = 1332651715) TOTAL BILI (test code 0.3 mg/dL 0.1-1.1 = 8280101929) CALCIUM (test code = 9.1 mg/dL 8.6-10.6 9089861986) T PROTEIN (test code = 6.6 g/dL 6.3-8.2 4103367172) ALBUMIN (test code = 3.7 g/dL 3.5-5 2737337445) ALK PHOS (test code = 60 U/L 34-122 7235047744) ALTv (test code = 30 U/L 5-50 1742-6) AST(SGOT) (test code = 25 U/L 13-40 5693808285) eGFR Calculation mL/min/1.73m2 (Non-) (test code = 5707609778) eGFR Calculation mL/min/1.73m2 () (test code = 8810440737) MORIS (test code = MORIS) Association of [...] or urine or abnormalities in imaging tests). [facility]"
[2023-02-18] MEDS ORDERED: SMZ./TMP. 800/160 MG TABLET ONE (20:41)
[2023-02-18] MEDS ORDERED: DOXYCYCLINE 100 MG CAP PO ONE (20:41)
[2023-02-18] MEDS ORDERED: MUPIROCIN 2% OINT 22GM TUBE TOP ONE (20:41)
[2023-02-18] MEDS ORDERED: LIDOCAINE 2% W/EPI 1:200,000 MPF 20 ML VIAL IM ONE (20:44)
[2023-02-18] MEDS ORDERED: NA CHLORIDE 0.9% 1,000 ML ONE (20:45)
[2023-02-18] MEDS ORDERED: KETOROLAC 30 MG/ML INJ ONE (20:45)
--- NOTE | 2023-02-18 22:03 | ER ---
Nurse's Notes [facility] Name: Salas Walker Age: 38 yrs Sex: Male : 1985 Arrival Date: 02/18/2023 Time: 19:57 Bed 2 Private MD: Diagnosis: Cutaneous abscess of right lower limb-knee Presentation: 02/18 20:12 Chief complaint: Patient states: "I think I have staph on my knee. I think I got a as6 small cut when I was working on a car". Coronavirus screen: At this time, the client does not indicate any symptoms associated with coronavirus-19. Ebola Screen: No symptoms or risks identified at this time. Initial Sepsis Screen: Does the patient meet any 2 criteria? No. Patient's initial sepsis screen is negative. Does the patient have a suspected source of infection? No. Patient's initial sepsis screen is negative. Risk Assessment: Do you want to hurt yourself or someone else? Patient reports no desire to harm self or others. Onset of symptoms was February 16, 2023. 20:12 Method Of Arrival: Ambulatory as6 20:12 Acuity: DARI 3 as6 Triage Assessment: 22:05 Pain: Denies pain. jj7 Historical: - Allergies: 20:13 No Known Allergies; as6 - PMHx: 20:13 Anxiety; depressive disorder; drug abuse; HIV positive; as6 - PSHx: 20:13 None; as6 - Immunization history:: Client reports having NOT received the Covid vaccine. - Social history:: Smoking status: Patient reports the use of cigarette tobacco products, smokes one pack cigarettes per day. - Family history:: not pertinent. - Hospitalizations: : No recent hospitalization is reported. Screenin:[address] [facility] ED Fall Risk Assessment (Adult) History of falling in the last 3 months, jj7 including since admission No falls in past 3 months (0 pts) Confusion or Disorientation No (0 pts) Intoxicated or Sedated No (0 pts) Impaired Gait No (0 pts) Mobility Assist Device Used No (0 pt) Altered Elimination No (0 pt) Score/Fall Risk Level 0 - 2 = Low Risk Maintained a safe environment. Abuse screen: Denies threats or abuse. Nutritional screening: No deficits noted. Tuberculosis screening: No symptoms or risk factors identified. Assessment: 20:40 General: Appears in no apparent distress. uncomfortable, Behavior is calm, cooperative, jj7 appropriate for age, Smells of. Derm: Abscess located on right quadriceps is half dollar sized, is red, is raised. 21:40 Reassessment: Patient and/or family updated on plan of care and expected duration. Pain ha1 level reassessed. Patient is alert, oriented x 3, equal unlabored respirations, skin warm/dry/pink. care provider in the room performing procedure. Vital Signs: 20:12 BP 126 / 67; Pulse 76; Resp 20 S; Pulse Ox 99% on R/A; Weight 83.91 kg (R); Height 5 as6 ft. 7 in. (R); Pain 5/10; 20:16 Temp 98.4; as6 20:20 BP 104 / 84; Pulse 83; Resp 18 S; Pulse Ox 98% on R/A; ha1 21:30 BP 108 / 70; Pulse 72; Resp 17; Pulse Ox 100% ; jj7 20:12 Body Mass Index 28.97 (83.91 kg, 170.18 cm) as6 20:12 Pain Scale: Adult as6 ED Course: 19:59 Patient arrived in ED. ja2 20:13 Triage completed. as6 20:14 Arm band placed on. as6 20:20 Mark James MD is Attending Physician. [facility] 20:40 Patient has correct armband on for positive identification. Call light in reach. Adult jj7 w/ patient. 20:54 Shanda Darden, RN is Primary Nurse. ha1 21:20 Assist provider with I \\T\\ D: of an abscess on right LOWER THIGH BY KNEE Set up I\\T\\D tray. jj 7 Performed by Mark James MD Culture sent to lab. Wound packed. iodoform gauze, Patient tolerated well. 22:01 Dressings: 4X4s X 3; right leg. jj7 22:02 Danis Hardy MD is Referral Physician. kaylie 22:11 Patient did not have IV access during this emergency room visit. jj7 Administered Medications: 20:46 Drug: Trimethoprim-Sulfamethoxazole PO (160 mg-800 mg (DS) 2 tablet Route: PO; jj7 22:05 Follow up: Response: No adverse reaction jj7 20:46 Drug: Doxycycline PO 200 mg Route: PO; jj7 22:05 Follow up: Response: No adverse reaction jj7 21:40 Drug: Lidocaine-Epinephrine Infiltration -1%: (1:100,000) 10 ml {Note: ADMIN BY DR heladio JAMES.} Volume: 20 ml; Route: Infiltration; 22:04 Follow up: Response: Pain is decreased jj7 21:50 Drug: Mupirocin Topical Ointment 2 % 1 application Route: Topical; Site: right thigh; jj7 22:04 Follow up: Response: No adverse reaction jj7 Medication: 20:40 VIS not applicable for this client. jj7 Outcome: 22:02 Discharge ordered by . kaylie 22:11 Discharged to home ambulatory, with significant other. jj7 22:11 Condition: improved 22:11 Discharge instructions given to patient, Instructed on discharge instructions, follow up and referral plans. medication usage, wound care, Demonstrated understanding of instructions, follow-up care, medications, wound care, Prescriptions given X 3. 22:11 Patient left the ED. jj7 Signatures: Mark James MD MD cha Alexander, Jessica ja2 Slawson, Ashby, RN RN as6 Shanda Darden, RN RN ha1 Ama Hager RN RN jj7 Corrections: (The following items were deleted from the chart) 22:01 21:20 Assist provider with I \\T\\ D: of an abscess on right LOWER THIGH BY KNEE Set up I\\T\\D jj 7 tray. Performed by Mark James MD Wound packed. iodoform gauze, Patient tolerated well. jj7
--- NOTE | 2023-02-18 22:03 | EDPHYS ---
Physician Documentation [facility] Name: Salas Walker Age: 38 yrs Sex: Male : 1985 Arrival Date: 02/18/2023 Time: 19:57 Bed 2 Private MD: ED Physician Mark James HPI: 02/18 21:56 This 38 yrs old Male presents to ER via Ambulatory with complaints of kaylie infection on Knee. 21:56 The patient presents with an abscess of the right knee. Description: The affected area kaylie is moderate sized, irregular, erythematous, fluctuant, pointed, raised. Onset: The symptoms/episode began/occurred 3 day(s) ago. Possible cause(s): unknown. Associated signs and symptoms: Pertinent positives: erythema, swelling. The patient presents with decreased range of motion, pain. The complaints affect the right knee. Context: The problem was sustained at an unknown site. Modifying factors: The symptoms are alleviated by elevating leg, remaining still, the symptoms are aggravated by nothing. Associated signs and symptoms: The patient has no apparent associated signs or symptoms. Severity of symptoms: At their worst the symptoms were mild, in the emergency department the symptoms are unchanged. Historical: - Allergies: 20:13 No Known Allergies; as6 - PMHx: 20:13 Anxiety; depressive disorder; drug abuse; HIV positive; as6 - PSHx: 20:13 None; as6 - Immunization history:: Client reports having NOT received the Covid vaccine. - Social history:: Smoking status: Patient reports the use of cigarette tobacco products, smokes one pack cigarettes per day. - Family history:: not pertinent. - Hospitalizations: : No recent hospitalization is reported. ROS: 21:56 Constitutional: Negative for fever, chills, and weight loss, Eyes: Negative for injury, kaylie pain, redness, and discharge, ENT: Negative for injury, pain, and discharge, Neck: Negative for injury, pain, and swelling, Cardiovascular: Negative for chest pain, palpitations, and edema, Respiratory: Negative for shortness of breath, cough, wheezing, and pleuritic chest pain, Abdomen/GI: Negative for abdominal pain, nausea, vomiting, diarrhea, and constipation, Back: Negative for injury and pain, : Negative for injury, bleeding, discharge, and swelling, Skin: Negative for injury, rash, and discoloration, Neuro: Negative for headache, weakness, numbness, tingling, and seizure, Psych: Negative for depression, anxiety, suicide ideation, homicidal ideation, and hallucinations, Allergy/Immunology: Negative for hives, rash, and allergies, Endocrine: Negative for neck swelling, polydipsia, polyuria, polyphagia, and marked weight changes, Hematologic/Lymphatic: Negative for swollen nodes, abnormal bleeding, and unusual bruising. 21:56 MS/extremity: Positive for pain, swelling, tenderness, of the right knee. Exam: 21:56 Constitutional: This is a well developed, well nourished patient who is awake, alert, kaylie and in no acute distress. Head/Face: Normocephalic, atraumatic. Eyes: Pupils equal round and reactive to light, extra-ocular motions intact. Lids and lashes normal. Conjunctiva and sclera are non-icteric and not injected. Cornea within normal limits. Periorbital areas with no swelling, redness, or edema. ENT: Nares patent. No nasal discharge, no septal abnormalities noted. Tympanic membranes are normal and external auditory canals are clear. Oropharynx with no redness, swelling, or masses, exudates, or evidence of obstruction, uvula midline. Mucous membranes moist. Neck: Trachea midline, no thyromegaly or masses palpated, and no cervical lymphadenopathy. Supple, full range of motion without nuchal rigidity, or vertebral point tenderness. No Meningismus. Chest/axilla: Normal chest wall appearance and motion. Nontender with no deformity. No lesions are appreciated. Cardiovascular: Regular rate and rhythm with a normal S1 and S2. No gallops, murmurs, or rubs. Normal PMI, no JVD. No pulse deficits. Respiratory: Lungs have equal breath sounds bilaterally, clear to auscultation and percussion. No rales, rhonchi or wheezes noted. No increased work of breathing, no retractions or nasal flaring. Abdomen/GI: Soft, non-tender, with normal bowel sounds. No distension or tympany. No guarding or rebound. No evidence of tenderness throughout. Back: No spinal tenderness. No costovertebral tenderness. Full range of motion. Male : Normal genitalia with no discharge or lesions. Neuro: Awake and alert, GCS 15, oriented to person, place, time, and situation. Cranial nerves II-XII grossly intact. Motor strength 5/5 in all extremities. Sensory grossly intact. Cerebellar exam normal. Normal gait. Psych: Awake, alert, with orientation to person, place and time. Behavior, mood, and affect are within normal limits. 21:56 Skin: abscess, that is moderate sized, of the right knee, with fluctuance, with induration, with surrounding cellulitis, that is mild, that is moderate, cellulitis, that is mild, induration, that is moderate is noted, injury, is not appreciated. Vital Signs: 20:12 BP 126 / 67; Pulse 76; Resp 20 S; Pulse Ox 99% on R/A; Weight 83.91 kg (R); Height 5 as6 ft. 7 in. (R); Pain 5/10; 20:16 Temp 98.4; as6 20:20 BP 104 / 84; Pulse 83; Resp 18 S; Pulse Ox 98% on R/A; ha1 21:30 BP 108 / 70; Pulse 72; Resp 17; Pulse Ox 100% ; jj7 20:12 Body Mass Index 28.97 (83.91 kg, 170.18 cm) as6 20:12 Pain Scale: Adult as6 Procedures: 21:56 I \T\ D: Incision and drainage was performed for an abscess of the right Prepped with [facility] Betadine, Anesthetized with 8 ml's 2% Lidocaine. Incised with #11 blade. Drained moderate amount purulent fluid. serosanguinous fluid. Packed with Dressing: non-Adherent dressing, the patient tolerated the procedure well. MDM: 20:20 Patient medically screened. [facility] 21:56 Differential diagnosis: abscess, cellulitis, insect bite. Data reviewed: vital signs, [facility] nurses notes. Consideration of Admission/Observation Escalation of care including admission/observation considered. I considered the following discharge prescriptions or medication management in the emergency department Medications were administered in the Emergency Department. See MAR. Test considered but Not performed: Labs: no labs. Historians other than the Patient: Spouse/Significant Other: , informed. External Records Reviewed:. Care significantly affected by the following chronic conditions: anxiety, depression, ivda, hiv. 02/18 20:25 Order name: Wound Culture [facility] 02/18 20:25 Order name: Dressing - Wound; Complete Time: 22:04 [facility] 02/18 20:25 Order name: Gloves, Sterile; Complete Time: 20:45 [facility] 02/18 20:25 Order name: Setup Suture Tray; Complete Time: 20:45 [facility] Administered Medications: 20:46 Drug: Trimethoprim-Sulfamethoxazole PO (160 mg-800 mg (DS) 2 tablet Route: PO; jj7 22:05 Follow up: Response: No adverse reaction jj7 20:46 Drug: Doxycycline PO 200 mg Route: PO; jj7 22:05 Follow up: Response: No adverse reaction j7 21:40 Drug: Lidocaine-Epinephrine Infiltration -1%: (1:100,000) 10 ml {Note: ADMIN BY DR heladio JAMES.} Volume: 20 ml; Route: Infiltration; 22:04 Follow up: Response: Pain is decreased j7 21:50 Drug: Mupirocin Topical Ointment 2 % 1 application Route: Topical; Site: right thigh; jj7 22:04 Follow up: Response: No adverse reaction jj7 Disposition Summary: 02/18/23 22:02 Discharge Ordered Location: Home [facility] Problem: new kaylie Symptoms: have improved kaylie Condition: Stable kaylie Diagnosis - Cutaneous abscess of right lower limb - knee kaylie Followup: kaylie - With: Private Physician - When: 2 - 3 days - Reason: Recheck today's complaints, Continuance of care, Re-evaluation by your physician Followup: kaylie - With: Danis Hardy MD - When: 2 - 3 days - Reason: Recheck today's complaints, Re-evaluation by your physician Discharge Instructions: - Discharge Summary Sheet kaylie - Skin Abscess kaylie - Incision and Drainage kaylie - Skin Abscess, [id number] kaylie - Incision and Drainage, Care After kaylie Forms: - Medication Reconciliation Form [facility] - Thank You Letter [facility] - Antibiotic Education [facility] - Prescription Opioid Use [facility] Prescriptions: - Centany 2 % Topical ointment - apply 1 application by TOPICAL route 3 times per day; 15 gram tube; Refills: 0, kaylie Product Selection Permitted - Doxycycline Hyclate 100 mg Oral Tablet - take 1 tablet by ORAL route every 12 hours; 20 tablet; Refills: 0, Product kaylie Selection Permitted - Bactrim DS 800-160 mg Oral Tablet - take 1 tablet by ORAL route every 12 hours for 10 days; 20 tablet; Refills: 0, [facility] Product Selection Permitted Signatures: Dispatcher [employer] Mark Guzman MD MD cha Slawson, Ashby, RN RN as6 Ama Hager, RN RN jj7
[2023-02-18 22:35] VITALS: TEMP 98.4
[2023-02-18 22:38] VITALS: BP 108/70; O2SAT 100
== END 2023-02-18 22:11 | disposition home or self-care (01) ==
LOC: ER 19:57
PROC: 0H9KXZZ Drainage of Right Lower Leg Skin, External Approach (ICD-10-PCS; principal; 2023-02-18)
DX: L02.415 Cutaneous abscess of right lower limb (principal)
CPT/HCPCS: 87070; 87205; J7030